=== PATIENT | female | born 1940 | race Caucasian/White ===

== ENCOUNTER 2017-11-27 10:32 | Outpatient (CLI) | payer MEDICARE, SELFPAY ==
[2017-11-27 11:20] VITALS: BP 102/49; PULSE 72; RESP 18; TEMP 36.6; O2SAT 99
[2017-11-27 11:50] VITALS: BP 105/50; PULSE 78; RESP 18; O2SAT 98
[2017-11-27 12:20] VITALS: BP 104/48; PULSE 77; RESP 18; O2SAT 99
[2017-11-27 12:50] VITALS: BP 101/52; PULSE 74; RESP 18; O2SAT 98
[2017-11-27 13:20] VITALS: BP 103/57; PULSE 79; RESP 18; O2SAT 99
[2017-11-27 13:35] VITALS: BP 110/54; PULSE 76; RESP 18; O2SAT 98
== END 2017-11-27 13:30 | disposition home or self-care (01) ==
PROVIDERS: PCP Nurse Practitioner Family; Visit Provider Nurse Practitioner Family
DX: E86.0 Dehydration (principal)
CPT/HCPCS: 96360; 96361

== ENCOUNTER → 2017-12-11 13:00 | Outpatient (REF) | payer MEDICARE, SELFPAY ==
[2017-12-14 11:59] LABS: C difficile Toxins AB, EIA Positive (Negative)
== END ==
LOC: LAB 13:00
PROVIDERS: Visit Provider Nurse Practitioner Family
DX: R19.7 Diarrhea, unspecified (principal)
CPT/HCPCS: 87045; 87205; 87324

== ENCOUNTER → 2018-01-01 10:26 | Outpatient (CLI) | payer MEDICARE, SELFPAY ==
[2018-01-01 10:54] LABS: Occult Blood,Stool Negative (Negative)
== END ==
PROVIDERS: Family Provider Nurse Practitioner; PCP Nurse Practitioner Family; Visit Provider Surgery
DX: R19.7 Diarrhea, unspecified (principal)
CPT/HCPCS: 82272; G0328

== ENCOUNTER → 2018-01-07 08:00 | Outpatient (CLI) | payer MEDICARE, SELFPAY ==
[2018-01-08 16:06] LABS: C difficile Toxins AB, EIA Negative (Negative)
== END ==
PROVIDERS: Family Provider Nurse Practitioner; PCP Nurse Practitioner Family; Visit Provider Surgery
DX: R10.9 Unspecified abdominal pain (principal)
CPT/HCPCS: 87324

== ENCOUNTER → 2018-06-12 10:01 | Outpatient (CLI) | payer MEDICARE, SELFPAY ==
--- NOTE | 2018-06-12 10:03 | CA_ITS ---
PROCEDURE: 2-D M-mode and color Doppler study INDICATIONS FOR THE TEST: Chest pain COPD Heart Murmur Tobacco Smoking Palpitations Fatigue Syncope Edema+ Hypertension+Diabetes Mellitus Rheumatic Fever SOB+JOSÉ Obesity+Hyperlipidemia+ Family History HD+ Additional History TRISTAN, dizziness, RBBB, first degree AV block PATIENT INFORMATION HEIGHT: 69 WEIGHT: 245 GENDER: Female B/P: 183/66 2-D/M-MODE INTERPRETATION: 2-D MEASUREMENTS OBSERVED VALUES IN CMS Right Ventricular Dimension (RVDd) 3.0 Interventricular Septum (Thickness)(IVsd) 0.8 Left Ventricular Internal Dimensions(LVIDd) 4.9 Left Ventricular Posterior Wall (Thickness)(LVPWd) 0.9 Aortic Root 3.2 Aortic Cusp Separation 2.3 Left Atrial Dimensions (LAD) 3.6 2D 1. Left atrium is mildly enlarged, left ventricle is normal size, there is mild qualitative concentric left ventricular hypertrophy, visually estimated ejection fraction 55% with no regional wall motion abnormality. 2. The right atrium and right ventricle are mildly enlarged with normal contractility. 3. The aortic valve is minimally thickened and calcified leaflet continue to display mobility. 4. The mitral and tricuspid valve leaflets are minimally thickened and calcified. 5.The pulmonic valve is poorly visualized. 6. No significant pericardial effusion noted. DOPPLER INTERROGATION: Doppler interrogation of the aortic, mitral and tricuspid valvular presence of mild mitral and tricuspid regurgitation, tricuspid regurgitation jet velocity is inadequate for calculation of the right ventricular systolic pressure, grade 1 diastolic dysfunction seen with tissue Doppler evidence of raised left atrial pressure. CONCLUSION: 1. Mildly enlarged left atrium, normal left ventricular size, mild qualitative concentric left ventricular hypertrophy, visually estimated ejection fraction 55% with no regional wall motion abnormality, grade 1 diastolic dysfunction seen with tissue Doppler evidence of raised left atrial pressure. 2. Mildly enlarged right ventricle with normal contractility. 3. Mild mitral and tricuspid regurgitation 4. No significant pericardial effusion noted.
--- NOTE | 2018-06-12 10:03 | CI_ITS ---
Cerebrovascular Exam Indications: Follow-up carotid 433.10. 780.4 Dizziness and giddiness. Stent right carotid 2011. IMPRESSIONS 1. The bilateral veterbral arteries were non-visualized. 2. Study suggests less than 20% stenosis involving the right internal carotid artery. No change from the study of 14-Jun-2015. 3. Study suggests less than 20% stenosis involving the left internal carotid artery. No change from the study of 14-Jun-2015. History: Risk factors: Hypertension. Carotid duplex study. Complete study and Doppler flow study including spectral analysis, color and simmons scale imaging. Location: Vascular laboratory. Patient status: Outpatient. Tables: Arterial flow: + +--------+--------+ Location V sys V ed + +--------+--------+ Right CCA - proximal 121cm/s 20.4cm/s + +--------+--------+ Right CCA - mid 95.9cm/s 22cm/s + +--------+--------+ Right CCA - distal 119cm/s 35.4cm/s + +--------+--------+ Right ECA 178cm/s 30.3cm/s + +--------+--------+ Right ICA - proximal 122cm/s 36.9cm/s + +--------+--------+ Right ICA - mid 112cm/s 25.9cm/s + +--------+--------+ Right ICA - distal 125cm/s 33cm/s + +--------+--------+ Left CCA - proximal 101cm/s 18.9cm/s + +--------+--------+ Left CCA - distal 98.2cm/s 15.7cm/s + +--------+--------+ Left ECA 99.8cm/s 10.2cm/s + +--------+--------+ Left ICA - proximal 71.5cm/s 21.2cm/s + +--------+--------+ Left ICA - mid 99cm/s 31.4cm/s + +--------+--------+ Left ICA - distal 94.3cm/s 30.6cm/s + +--------+--------+ Velocity ratios: + + + + + + Right, V sys Right, V ed Left, V sys Left, V ed + + + + + + Max ICA/dist CCA 1.05 1.04 1.01 2 + + + + + + (Report amended ) Electronically signed by: Maynor Pavon [id number]
== END ==
PROVIDERS: PCP Nurse Practitioner Family; Visit Provider Urology
DX: R42 Dizziness and giddiness (principal); R06.02 Shortness of breath
CPT/HCPCS: 93306; 93880

== ENCOUNTER → 2018-06-28 13:44 | Outpatient (CLI) | payer MEDICARE, SELFPAY ==
[2018-06-28 16:50] LABS: Anion Gap 19.4 mEq/L (5-15); Blood Urea Nitrogen 13 mg/dL (7-18); Calcium 9.4 mg/dL (8.5-10.1); Carbon Dioxide 22 mmol/L (21.0-32.0); Chloride 101 mmol/L (98-107); Creatinine,Serum 0.98 mg/dL (0.55-1.02); Estimated Glomerular Filt Rate 55 ml/min (>60); GFR (African American) 67 ML/MIN (>60); Glucose 105 mg/dL (74-106); Potassium 4.4 mmoL/L (3.5-5.1); Sodium 138 mmol/L (136-145)
== END ==
PROVIDERS: Visit Provider Physician Assistant
DX: I11.9 Hypertensive heart disease without heart failure (principal); R42 Dizziness and giddiness
CPT/HCPCS: 36415; 80048

== ENCOUNTER → 2018-10-07 08:18 | Outpatient (CLI) | payer MEDICARE, SELFPAY ==
[2018-10-07 09:12] LABS: Alanine Aminotransferase 26 U/L (12-78); Albumin Level 3.6 gm/dL (3.4-5.0); Alkaline Phosphatase 141 U/L (46-116); Aspartate Amino Transferase 13 U/L (15-37); Bilirubin,Direct 0.1 mg/dL (0.0-0.2); Bilirubin,Indirect 0.6 mg/dL (0.0-0.9); Bilirubin,Total 0.7 mg/dL (0.2-1.0); Chol/HDL Ratio 3.4 (1-3.5); Cholesterol 114 mg/dL (140-200); HDL Cholesterol 34 mg/dL (29-89); LDL Cholesterol 43 mg/dL (0-130); Total Protein,Serum 7.4 gm/dL (6.4-8.2); Triglycerides 185 mg/dL (30-200); VLDL Cholesterol 37 mg/dL (0-40)
== END ==
PROVIDERS: Visit Provider Urology
DX: E78.5 Hyperlipidemia, unspecified (principal); I25.10 Atherosclerotic heart disease of native coronary artery without angina pectoris; I44.0 Atrioventricular block, first degree; I45.10 Unspecified right bundle-branch block; R06.02 Shortness of breath; R42 Dizziness and giddiness; Z98.890 Other specified postprocedural states
CPT/HCPCS: 36415; 80061; 80076

== ENCOUNTER → 2020-07-19 07:32 | Outpatient (CLI) | payer MEDICARE, SELFPAY ==
--- NOTE | 2020-07-19 | CA_ITS ---
APPROVED REPORT Exam: Pharmacologic Technologist: Shonda Serna, Ht: 5 ft 9 in Wt: 241 lbs BSA: 2.24 m2 HR: 62 bpm BP: 145/72 mmHg Indications: Atypical Angina, CAD, TRISTAN Medical History Medications: Levothyroxine,,,,, Aspirin,,,,, Allopurinol,,,,, Atorvastatin,,,,, Carvedilol,,,,, Losartan/HCTZ,,,,, MiraLAX,,,,, Stress Test Details Test: LEXISCAN HR Resting HR: 63 bpm Max Heart Rate (APMHR): 143 bpm Max HR Achieved: 76 bpm Target HR (85% APMHR): 121 bpm % of APMHR: 53 Recovery HR: 68 bpm BP Resting BP: 145/72 mmHg Max BP: 146/73 mmHg Recovery BP: 146.0/73.0 mmHg ECG Clinical Exercise duration: 04:00 min Highest Stage Achieved: Stress ECG Conclusion Symptoms: SOA with Lexiscan infusion, No CP Arrhythmias/Ectopy: None ST-T Changes: <1.[address] segment changes Conclusion:non diagnostic EKG Electronically signed by : Mendoza Ugalde, 07/19/2020 19:12:16
--- NOTE | 2020-07-19 07:40 | NM_ITS ---
APPROVED REPORT Exam: Nuclear Stress Test Indication: Chest pain, SOB, CAD, HTN, High cholesterol, Family history Patient Location: Outpatient Stress Tech: Shonda Serna NM Tech:Nina Thomas, ARRT, RT (R)(N) Ht: 5 ft 9 in Wt: 240 lbs Bra Size: 44D HR: 62 bpm BP: 145/72 mmHg BSA: 2.23 m2 BMI: 35.4 History: Chest pain, SOB, CAD, HTN, High cholesterol, Family history Procedure: Patient received a 0.4 mg of intravenous Lexiscan, resting heart rate 62 bpm, resting blood pressure 145/72 mmHg, with Lexiscan maximum heart rate achived was 70 bpm which is Less than 85 % of the maximum predicted heart rate and blood pressure was 129/72 mmHg. With Lexiscan, patient denied any complaint of chest pain. Electrocardiogram Resting electrocardiogram showed sinus rhythm, with Lexiscan there is less than 1.[address] segment depression noted from the baseline EKG. The EKG portion of the Lexiscan is nondiagnostic. Cardiac Stress and Resting SPECT Images: Cardiac Stress and Resting SPECT images were obtained using technetium 99m Myoview 30.8 mCi stress and 10.17 mCi at rest. Gated SPECT for analysis of segmental wall motion and calculation of the ejection fraction also done. Cardiac stress and resting SPECT images show uniform myocardial activity without segmental perfusion abnormality, computer derived ejection fraction 64% with no regional wall motion abnormality, right ventricle is normal size and contractility. Conclusion: 1. The EKG portion of the Lexiscan is nondiagnostic. 2. No scintigraphic evidence of reversible ischemia seen, computer derived ejection fraction is 64% with no regional wall motion abnormality, right ventricle is normal size and contractility. 3. Normal Lexiscan Myoview study. Electronically signed by : Mendoza Ugalde, 07/19/2020 19:24:25
--- NOTE | 2020-07-19 08:55 | CA_ITS ---
APPROVED REPORT Transportation Security Screener: DIONNE Laterality: Bilateral Indications: TRISTAN, history of CVA Risk Factors Hypertension: Hyperlipidemia Doppler Spectral Velocity Analysis ECA (R) 102.70/5.30 cm/s ECA (L) 73.70/11.10 cm/s dICA (R) 148.60/33.10 cm/s dICA (L) 80.50/24.00 cm/s Laura (R) 150.80/36.40 cm/s Laura (L) 86.50/24.00 cm/s pICA (R) 141.10/39.60 cm/s pICA (L) 69.40/21.40 cm/s dCCA (R) 110.10/24.60 cm/s dCCA (L) 94.10/12.80 cm/s pCCA (R) 113.30/23.50 cm/s pCCA (L) 103.70/17.10 cm/s ICA/CCA 1.37 Vert (L) 31.70/14.60 cm/s ICA/CCA 0.92 Findings Duplex evaluation demonstrates stenosis of the right proximal internal carotid artery in the range of 20-49% with PSV <140 cm/sec, EDV <100 cm/sec, and IC/CC Ratio <4.0. Duplex evaluation demonstrates stenosis of the left proximal internal carotid artery <20% with PSV <140 cm/sec, EDV <100 cm/sec, and IC/CC Ratio <4.0. Conclusion Duplex evaluation demonstrates stenosis of the right proximal internal carotid artery in the range of 20-49% with PSV <140 cm/sec, EDV <100 cm/sec, and IC/CC Ratio <4.0. Duplex evaluation demonstrates stenosis of the left proximal internal carotid artery <20% with PSV <140 cm/sec, EDV <100 cm/sec, and IC/CC Ratio <4.0. Electronically signed by : Maynor Pavon MD 07/19/2020 17:20:32
--- NOTE | 2020-07-19 08:55 | CA_ITS ---
APPROVED REPORT EXAM: Comprehensive 2D, Doppler, and color-flow Echocardiogram Licensed Clinician: Amber Kirk RT(R) Ht: 5 ft 9 in Wt: 241lbs BSA: 2.24 BP: 121/72 mmHg Indications: COPD, HTN, hyperlipidemia, CAD, RBBB, angina 2D Dimensions LVOT 1.98 cm (M/F) 1.5-2.5 M-Mode Dimensions RVDd 2.68 cm (0.9-2.6) LA Diam 3.32 cm (1.9-4.0) LVDd 4.33 cm (3.5-5.7) Ao Diam 2.47 cm (2.0-3.7) LVDs 3.30 cm (3.5-5.7) IVSd 0.98 cm (0.6-1.1) PWd 0.89 cm (0.6-1.1) EF (Teich) 47.70% FS 23.80% EDV (Teich) 84.40 mL ESV (Teich) 44.10 mL LV Diastology E Decel Time 157.00 (160-240 msec) E/A Ratio 1.1 MED E' 6.20 (< 7 cm/sec) E'/MED E' Ratio 13.50 (>14) LAT E' 10.00 (<10 cm/sec) E/LAT E' Ratio 8.37 (>14) Mitral Valve MV E Max Ciaran. 84.00 (40-130 cm/s) MV A Velocity 78.00 (40-130 cm/s) E/A Ratio 1.08 MV Decel. Time 157.00 (160-240 ms) MV PHT 46.00 ms Left Ventricle Left atrium is mildly enlarged, left ventricle is normal size, mild concentric left ventricular hypertrophy, visually estimated ejection fraction 55% with no regional wall motion abnormality, grade 2 diastolic dysfunction seen without tissue Doppler evidence of raise left atrial pressure. Right Ventricle Right atrium and right ventricle are mildly enlarged with normal contractility. Aortic Valve Aortic valve is thickened and calcified without Doppler evidence of aortic stenosis or aortic insufficiency. Mitral Valve Mitral valve leaflets are minimally thickened, there is mild mitral regurgitation. Tricuspid Valve Tricuspid valve grossly normal, there is mild tricuspid regurgitation, tricuspid regurgitation jet velocity is inadequate for calculation of the right ventricular systolic pressure. Pulmonic Valve Pulmonic valve is poorly visualized. Great Vessels Aortic root is normal size. Pericardium No significant pericardial effusion noted. Conclusion 1. Mild biatrial enlargement, normal left ventricular size, mild concentric left ventricular hypertrophy, visually estimated ejection fraction 55% with no regional wall motion abnormality, grade 2 diastolic dysfunction seen without tissue Doppler evidence of raise left atrial pressure. 2. Mildly enlarged right ventricle with normal contractility. 3. Mild mitral and tricuspid regurgitation. 4. No significant pericardial effusion noted. Electronically signed by : Mendoza Ugalde, 07/19/2020 18:39:17
--- NOTE | 2020-07-19 09:18 | HMH.ITSHM ---
Current Home Medications as stated by this patient Madelyn Palacios or signs sales representative. []LOSARTAN LEVOTHYROXINE CARVEDILOL ATORVASTATIN ALLOPURINOL ASA
== END ==
PROVIDERS: PCP Nurse Practitioner Family; Visit Provider Physician Assistant
DX: R06.02 Shortness of breath (principal); I11.9 Hypertensive heart disease without heart failure; I45.2 Bifascicular block; R09.89 Other specified symptoms and signs involving the circulatory and respiratory systems; Z86.73 Personal history of transient ischemic attack (TIA), and cerebral infarction without residual deficits
CPT/HCPCS: 78452; 93017; 93306; 93880; A9502; J2785

== ENCOUNTER → 2020-07-21 09:23 | Outpatient (CLI) | payer MEDICARE, SELFPAY ==
[2020-07-21 09:51] LABS: Basophils # 0.1 K/mm3 (0-0.2); Basophils % 0.8 % (0.1-2.0); Eosinophils # 0.5 K/mm3 (0.0-0.4); Eosinophils % 7.8 % (0.1-12.0); Hematocrit 38.5 % (37.0-47.0); Hemoglobin 11.9 g/dL (12.2-16.2); Lymphocytes % 44.5 % (10-50); Mean Corpuscular HGB Conc 30.8 g/dL (31.8-35.4); Mean Corpuscular Hemoglobin 33.1 pg (27.0-31.2); Mean Corpuscular Volume 107.2 fl (81-99); Mean Platelet Volume 8.7 fl (7.4-10.4); Monocytes # 0.4 K/mm3 (0.1-1.0); Monocytes % 6.2 % (1.7-9.3); Neutrophils # 2.7 K/mm3 (1.8-7.8); Neutrophils % 40.7 % (37.0-80.0); Platelet Count 183 K/mm3 (142-424); Red Blood Count 3.59 M/mm3 (4.20-5.40); Red Cell Distribution Width 16.6 % (11.5-17.5); White Blood Count 6.7 K/mm3 (4.8-10.8)
[2020-07-21 10:13] LABS: Chloride 104 mmol/L (98-107); Potassium 4.1 mmoL/L (3.5-5.1); Sodium 140 mmol/L (136-145)
[2020-07-21 10:16] LABS: Alanine Aminotransferase 30 U/L (12-78); Albumin Level 4.5 g/dl (3.5-5.0); Alkaline Phosphatase 136 U/L (38-126); Anion Gap 14.1 mEq/L (5-15); Aspartate Amino Transferase 28 U/L (14-36); Bilirubin,Direct 0.1 mg/dl (0.0-0.4); Bilirubin,Indirect 0.7 mg/dL (0.0-0.9); Bilirubin,Total 0.8 mg/dl (0.2-1.3); Bilirubin,Unconjugated 0.7 mg/dL (0.0-1.1); Blood Urea Nitrogen 13 mg/dl (7-17); Calcium 10.3 mg/dl (8.4-10.2); Carbon Dioxide 26 mmol/L (22.0-30.0); Cholesterol 142 mg/dl (140-200); Estimated Glomerular Filt Rate 61 ml/min (>60); GFR (African American) 73 ML/MIN (>60); Glucose 138 mg/dl (74-100); Total Protein,Serum 8.8 g/dl (6.3-8.2); Triglycerides 279 mg/dl (30-150); VLDL Cholesterol 56 mg/dL (0-40)
[2020-07-21 10:17] LABS: Chol/HDL Ratio 4.2 (1-3.5); HDL Cholesterol 34 mg/dl (40-60)
[2020-07-21 10:23] LABS: NT Pro Brain Natriuretic Pep. 332 pg/mL (0-450)
[2020-07-21 10:29] LABS: Direct LDL Cholesterol 32.68 mg/dL (100-129)
[2020-07-21 10:33] LABS: Triiodothryronine (T3) Uptake 33 % (23.5-40.5)
[2020-07-21 10:34] LABS: T4 (Thyroxine) 9.2 ug/dl (5.53-11.0)
[2020-07-21 10:48] LABS: Thyroid Stimulating Hormone 2.48 uIU/mL (0.465-4.68)
== END ==
PROVIDERS: Visit Provider Physician Assistant
DX: R53.83 Other fatigue (principal); E03.9 Hypothyroidism, unspecified; E78.5 Hyperlipidemia, unspecified; I11.9 Hypertensive heart disease without heart failure; R06.02 Shortness of breath; Z79.899 Other long term (current) drug therapy
CPT/HCPCS: 36415; 80048; 80061; 80076; 83880; 84436; 84443; 84479; 85025

== ENCOUNTER → 2020-08-12 10:52 | Outpatient (CLI) | payer MEDICARE, SELFPAY ==
--- NOTE | 2020-08-12 11:03 | XR_ITS ---
PROCEDURE: XR CERVICAL SPINE 5V CLINICAL INDICATION: CERVICALGIA COMPARISON: No exams were available for comparison FINDINGS: There is diffuse osteopenia. Carotid artery stent is present on the right. There is normal alignment. There is slight reversal of the cervical lordosis which could be due to patient positioning or muscle spasm. There is degenerative disc disease at C5-C6 and C6-C7. Facet arthritic changes are present at C5-C4 and C3. Foraminal narrowing is present on the left at C3-C4 and C6-C7. Prominent endplate hypertrophic changes are present at C6-C7. IMPRESSION: Degenerative disc disease C5-C6 and C6-C7 with endplate hypertrophic change at C6-C7 along with facet arthritic changes and left foraminal narrowing at C3-C4 and C6-C7. There is diffuse osteopenia. Dictated by: Maynor Pavon MD 08/12/2020 18:06 Maynor Pavon MD in [place] 08/12/2020 18:06
== END ==
PROVIDERS: PCP Nurse Practitioner Family; Visit Provider Nurse Practitioner Family
DX: M54.2 Cervicalgia (principal)
CPT/HCPCS: 72050

== ENCOUNTER → 2020-09-01 08:06 | Outpatient (CLI) | payer MEDICARE, SELFPAY ==
--- NOTE | 2020-09-01 08:08 | XR_ITS ---
PROCEDURE: XR DEXA AXIAL SKELETON CLINICAL HISTORY: OSTEOPENIA,POST MENOPAUSAL COMPARISON: No exams were available for comparison FINDINGS: The right hip BMD is 0.872 with a T-score of 0.2. The left hip BMD is 0.835 with a T-score of -0.1. The lumbar spine BMD is 1.399 with a T-score of 3.2. IMPRESSION: This patient is considered normal according to the World Health Organization criteria. Fracture risk is low. Based on these results a follow-up exam is recommended in 2 year. Dictated by: Maynor Pavon MD 09/01/2020 20:59 Maynor Pavon MD in [place] 09/02/2020 11:06
== END ==
PROVIDERS: PCP Nurse Practitioner Family; Visit Provider Nurse Practitioner Family
DX: M85.89 Other specified disorders of bone density and structure, multiple sites (principal); Z78.0 Asymptomatic menopausal state
CPT/HCPCS: 77080

== ENCOUNTER → 2020-10-20 10:38 | Outpatient (CLI) | payer MEDICARE, SELFPAY | PROVIDERS: PCP Nurse Practitioner Family; Visit Provider Nurse Practitioner Family | DX: R42 Dizziness and giddiness (principal) | CPT/HCPCS: 93225; 93226 ==

== ENCOUNTER → 2020-11-30 10:40 | Outpatient (CLI) | payer MEDICARE, SELFPAY | PROVIDERS: Visit Provider Physician Assistant | DX: Z01.812 Encounter for preprocedural laboratory examination (principal); Z11.52 Encounter for screening for COVID-19; R55 Syncope and collapse; R00.0 Tachycardia, unspecified | CPT/HCPCS: U0003 ==

== ENCOUNTER 2020-12-01 09:44 | Day surgery (SDC) | payer MEDICARE, SELFPAY ==
[2020-12-01] VITALS (9 sets, daily range): BP systolic 129–151; BP diastolic 69–87; PULSE 76–97; RESP 13–18; O2SAT 92–98; BMI 36.4
--- NOTE | 2020-12-01 | IR_ITS ---
APPROVED REPORT Patient Location: Outpatient Supervisor Phosphorus Processing: PEACE Suarez RT (R) PROCEDURES 1. Pocket formation for Permanent Pacemaker Placement on the left anterior aspect of the chest 2. Left subclavian venogram 3. Pocket formation for permanent pacemaker on the left anterior aspect of the chest 4. Placement of an atrial sensing and pacing coil into the right atrial appendage. 5. Placement of a ventricular sensing and pacing coil in the right ventricular apex. 6. Permanent Pacemaker Placement. INDICATION Sick Sinus Syndrome, Andres/Tachy Syndrome, Occluded left subclavian vein Informed consent was obtained prior to the procedure. COMPLICATIONS None Estimated Blood Loss: Less than 10 mls TECHNIQUE 1% Lidocaine with epinephrine used to anesthetized the left anterior aspect of the chest. Scalpel was used to make the initial cutaneous incision while electrocautery was used to dissect down tinto the fascia. The fascia was lifted off the pectoralis muscle and digitally manipulated creating a pocket for the pacemaker. Despite several attempts the wire would not pass through the subclavian vein. Because of this contrast was injected into the left antecubital access and left subclavian venography was performed which demonstrated an occluded left subclavian vein. At this point the pocket was flushed with antibiotics Monocryl was used to close the pocket and chris were used to close the cutaneous layer. At this point the procedure was repeated on the right side as described above. The right subclavian vein was accessed via the Salinger technique and 2 leads were placed in the right subclavian vein. Using fluoroscopic guidance, the ventricular lead was placed into the right ventricular apex, screwed and secured into place. Electronic interrogation proved acceptable thresholds and voltage within the lead. Using 3-0 silk, the ventricular lead was then secured into place. Lead was secured to the facia using the 3-0 silk. Following this, the sheath was pealed away. An additional 6 Macanese fresh sheath and dilator was placed over the existing wire. Using fluoroscopic guidance, the atrial lead was the placed into the right atrial appendage and screwed and secured in place. Electrical interrogation demonstrated acceptable thresholds and voltage number. The atrial lead was then secured into place using 3-0 silk. 1 gram of Ancef was used to flush the pocket. Following the pacemaker generator being secured to the fascia and in place, Monocryl was used to close the subcutaneous layers while chris were used to close the cutaneous layer. A pressure dressing was placed and the patient was transferred to the postop holding area in stable condition for postoperative care. INTERROGATION Generator Model number: ROSA CASTELLANOS DR, L311 Generator Serial number: [id number] Atrial lead model number: INGEVITY+ 45CM, 7840 Atrial lead serial number: [id number] P-wave: 4.0mV Impedence: 458 ohms Threshold: 1.0V@0.4ms Right Ventricular lead model number: INGEVITY+ 52CM, 7841 Right Ventricular lead serial number: [id number] R-wave: 12.0mV Impedence: 856 ohms Threshold: 1.0V@0.4ms Pacing Parameters: Mode: DDDR RYTHMIQ: AAIR with VVI Back up Base/Max Track: 60/130 ppm No diaphragmatic stimulation at 10 volts. IMPRESSION 1. Successful Pocket formation for Permanent Pacemaker Placement on the left anterior aspect of the chest 2. Successful Left subclavian venogram 3. Successful Pocket formation for permanent pacemaker on the left anterior aspect of the chest 4. Successful Placement of an atrial sensing and pacing coil into the right atrial appendage. 5. Successful Placement of a
--- NOTE | 2020-12-01 09:50 | XR_ITS ---
PROCEDURE: XR CHEST PORTABLE CLINICAL HISTORY: Confirm pacemaker/AID placement COMPARISON: CR CXR CHEST(2 VIEWS-NOT PORTABLE) from 02/16/2014 FINDINGS: Right subclavian bipolar pacemaker is present. Lead tips project over the right atrium and right ventricle. No evidence of pneumothorax. Skin clips are present in the right and left infraclavicular region. Lungs are clear bilaterally. Mild degenerative changes in the shoulders. IMPRESSION: S/p bipolar pacemaker placement with good lead position and no evidence of pneumothorax. Dictated by: Maynor Pavon MD 12/01/2020 14:31 Maynor Pavon MD in [place] 12/01/2020 14:31
[2020-12-01 10:33] LABS: Basophils # 0.1 K/mm3 (0-0.2); Basophils % 0.5 % (0.1-2.0); Eosinophils # 0.4 K/mm3 (0.0-0.4); Eosinophils % 4.3 % (0.1-12.0); Hemoglobin 11.6 g/dL (12.2-16.2); Lymphocytes # 2.9 K/mm3 (0.7-4.5); Lymphocytes % 30.9 % (10-50); Mean Corpuscular HGB Conc 34.1 g/dL (31.8-35.4); Mean Corpuscular Hemoglobin 34.2 pg (27.0-31.2); Mean Corpuscular Volume 100.3 fl (81-99); Mean Platelet Volume 9.4 fl (7.4-10.4); Monocytes # 0.6 K/mm3 (0.1-1.0); Monocytes % 5.9 % (1.7-9.3); Neutrophils # 5.5 K/mm3 (1.8-7.8); Neutrophils % 58.3 % (37.0-80.0); Platelet Count 193 K/mm3 (142-424); Red Blood Count 3.38 M/mm3 (4.20-5.40); Red Cell Distribution Width 16.5 % (11.5-17.5); White Blood Count 9.5 K/mm3 (4.8-10.8)
[2020-12-01 10:46] LABS: Chloride 104 mmol/L (98-107); Potassium 4.7 mmoL/L (3.5-5.1); Sodium 140 mmol/L (136-145)
[2020-12-01 10:49] LABS: Anion Gap 15.7 mEq/L (5-15); Blood Urea Nitrogen 19 mg/dl (7-17); Carbon Dioxide 25 mmol/L (22.0-30.0); Creatinine Clearance Estimated 68 mL/min (50-200); Estimated Glomerular Filt Rate 43 ml/min (>60); GFR (African American) 53 ML/MIN (>60)
[2020-12-01 10:50] LABS: Calcium 9.8 mg/dl (8.4-10.2); Glucose 149 mg/dl (74-100)
--- NOTE | 2020-12-01 12:36 | SUR.OPER ---
unable to access the left chest wall, room exchange architect to access right chest wall
== END 2020-12-01 15:17 | disposition home or self-care (01) ==
LOC: CATHLAB 09:47
PROVIDERS: PCP Nurse Practitioner Family; Visit Provider Internal Medicine
DX: I49.5 Sick sinus syndrome (principal); I44.4 Left anterior fascicular block; I11.9 Hypertensive heart disease without heart failure; I25.10 Atherosclerotic heart disease of native coronary artery without angina pectoris; I45.10 Unspecified right bundle-branch block; I44.0 Atrioventricular block, first degree; I65.21 Occlusion and stenosis of right carotid artery; R42 Dizziness and giddiness; Z79.899 Other long term (current) drug therapy
CPT/HCPCS: 33208; 71045; 80048; 85025; C1785; C1898; J2704; Q9967

== ENCOUNTER 2021-02-02 13:41 | Emergency (ER) | payer MEDICARE, SELFPAY ==
--- NOTE | 2021-02-02 14:17 | XR_ITS ---
PROCEDURE: XR LUMBAR SPINE 2-3V CLINICAL INDICATION: pain COMPARISON: CR LS5 LUMBAR SPINE 5 VIEWS from 02/09/2017 FINDINGS: No fracture or dislocation. No lytic or blastic change. There is normal mineralization. Mild lumbar scoliosis convex right. Multilevel lumbar spondylosis. Degenerative disc disease is present from L1-S1. Facet arthritic changes are present with facet hypertrophy from L2-S1. The degenerative disc disease has progressed and is most severe at L3-L4 with endplate osteophytes at that level. Endplate osteophytes are also present at L4-5 and L2-L3 and L1 and L2. There is mild wedging anteriorly at L3 which has developed since the previous exam age indeterminate. Other findings:None. IMPRESSION: Multilevel lumbar spondylosis which is progressed since the previous exam. There is minimal wedging of L3 which was not present previously and is age indeterminate Dictated by: Maynor Pavon MD 02/02/2021 15:05 Maynor Pavon MD in [place] 02/02/2021 15:05
[2021-02-02 14:45] VITALS: BP 149/81; PULSE 79; RESP 18; TEMP 37; O2SAT 98; BMI 34.8
--- NOTE | 2021-02-02 15:02 | HMH.EDUTC ---
[facility] [place] Disposition Clinical Impression: Low back pain with sciatica Qualifiers: Chronicity: unspecified Back pain laterality: left Sciatica laterality: sciatica of left side Qualified Code(s): M54.42 - Lumbago with sciatica, left side Disposition: Home, Self-Care Condition on Discharge: Good Instructions: DI for Low Back Pain, DI for Sciatica, DI for Back Pain With Sciatica, Methocarbamol Additional Instructions: *Ibuprofen cassidy 6 hours with meal as needed for pain/inflammation if your Doctor has said you can take it *Remember you had a Toradol shot in the clinic today, which is similar to Motrin do not take any for at least the next 8-10 hours *Not additional anti-inflammatory like motrin, aleve, advil with the above amount of ibuprofen. You can still take Tylenol every 4 hours as needed if you need something else for pain *Ice 20 minutes every 2 hours for the first 48 hours after the initial injury followed by moist heat every 20 minutes 3-4 times a day to affected area *Muscle relaxer as prescribed as needed for muscle spasms but remember, it WILL cause drowsiness You cannot take it and drive, operate machinery or care for small children. *Keep this area active, no movement leads to more stiffness, However take it easy and avoid heavy lifting pushing or pulling *Follow up with you family doctor if no improvement for further treatment in the next 48-72 hours Return if needed Straight to ER if any life threatening symptoms Prescriptions: methocarbamoL [Methocarbamol 500mg Tablet] 500 mg PO BID PRN #10 tab PRN Reason: Muscle Spasm Transmission Status: Received by [facility] #[id number] Referrals: Kosta Solis MD [Primary Care Provider] - As needed (Follow up in the next 24-48 hours if no improvement and immediately if any worsening of symptoms) Medical Decision Making - Medardo Inquiry Pt receiving controlled substance: No Medardo was queried for this patient: No Vital Signs: 02/02/21 14:45 02/02/21 15:47 Temperature 98.6 F 98.6 F Temperature Source Oral Pulse Rate 79 Pulse Rate [Right] 79 Respiratory Rate 18 18 Blood Pressure 149/81 H Blood Pressure [Right Arm] 149/81 H Blood Pressure Mean [Right Arm] 103 02 Sat by Pulse Oximetry 98 Oxygen Delivery Method Room Air Orders (Tests/Meds): ED MEDICATIONS Discontinued Medications Generic Name Dose Route Start Last Admin Trade Name Lorena PRN Reason Stop Dose Admin Ketorolac Tromethamine 30 mg 02/02/21 15:13 02/02/21 15:28 Ketorolac 60mg/2ml Vial IM 02/02/21 15:14 30 mg ONCE ONE Administration Methylprednisolone Sodium Succinate 125 mg 02/02/21 15:13 02/02/21 15:27 Methylprednisolone Sod Succ 125mg Vial IM 02/02/21 15:14 125 mg ONCE ONE Administration - Radiology Data #1 Image(s): L-Spine Image Reviewed: Yes I have reviewed radiologist's interpretation Multilevel lumbar spondylosis which is progressed since the previous exam. There is minimal wedging of L3 which was not present previously and is age indeterminate Medical Decision Narrative: Medication discussed with Pharmacy Patient state that pain was much better after medication [facility] [place] HPI - General Stated complaint: leg and back pain, no accident Time Seen by Provider: 02/02/21 15:02 Description of Symptoms (Recalled from Triage Doc. by RN): LOWER BACK PAIN, LEFT LEG PAIN X2 WEEKS HEENT Symptoms (Recalled from RN notes): No Resp Symptoms (Recalled from RN notes): No Skin Symptoms (Recalled from RN notes): No MS Symptoms (Recalled from RN notes): Yes Functional Status (Recalled from RN notes): WNL - History of Present Illness Provider Complaint: Patient states that she mowed the grass a couple weeks ago and a couple days after she started having achy like pain on the left side of her lower back area State that since then it has continued to hurt and now moved into her buttock area and into her upper leg State that pain is worse when she sits on that aleida
[2021-02-02 15:47] VITALS: BP 149/81; PULSE 79; RESP 18; TEMP 37; O2SAT 98
== END 2021-02-02 15:50 | disposition home or self-care (01) ==
PROVIDERS: Emergency Provider Nurse Practitioner; PCP Family Medicine
DX: M54.42 Lumbago with sciatica, left side (principal); J44.9 Chronic obstructive pulmonary disease, unspecified; I25.10 Atherosclerotic heart disease of native coronary artery without angina pectoris; I10 Essential (primary) hypertension; E78.5 Hyperlipidemia, unspecified; Z79.899 Other long term (current) drug therapy
CPT/HCPCS: G0463; 72100; 96372; 99202

== ENCOUNTER 2021-02-16 13:00 | Outpatient (RCR) | payer MEDICARE, SELFPAY ==
--- NOTE | 2021-02-11 13:58 | HMH.PTOPEV ---
PT Outpatient Evaluation Rehab PT Outpatient Evaluation Start: 02/11/21 12:55 Freq: Status: Active Protocol: Document 02/11/21 13:37 CYNTHIA (Rec: 02/11/21 13:54 CYNTHIA [id number]) Electronically Signed By Raphael Landers, PT 02/11/21 13:37 Outpatient Therapy Subjective History Subjective History Patient is a 80 year old female presenting to outpatient PT with reports of acute LBP with radiating pain to L buttock starting approx 1 .5 weeks ago. Patient reports symptom onset day after mowing her yard on a riding lawnmower. Most recent imaging indicates multilevel lumbar spondylosis, scoliosis convex R and L3 wedge fracture . Comorbidities include hx of non-hodgkins lymphoma x 2, HTN, HL, pacemaker and gout. Chief Complaint Pain,Spasms Symptom Type Ache Symptoms Relieved By Rest/Positioning,Ice,OTC Meds, Prescription Meds Symptoms Aggravated By Sitting,Bending/Stooping, Physical Activity,Lifting Prior Functional Limitations None Current Functional Limitations Lifting,Housework,Standing, Walking,Bending/Stooping Symptom Description Constant but Variable Level of pain today (0-10) 6 Pain scale - at its best (0-10) 6 Pain scale - at its worst (0-10) 10 Lumbopelvic Eval Posture Thoracic Spine Posture Standing Position Increased Kyphosis Lumbar Spine Posture Standing Position Decreased Lordosis Assistive device Assistive Devices None / NA Gait Observation General Gait Pattern Observation Antalgic Gait,Decrease Weight Bear (L) Palapation tenderness left buttock tenderness Yes: 3/4 Range of Motion Lumbar Spine Active Flexion Range of 65 Motion (degrees) Lumbar Spine Active Extension Range of 10 Motion (degrees) Left Lumbar Spine Lateral Flexion Active 10 Range of Motion (degrees) Right Lumbar Spine Lateral Flexion 10 Active Range of Motion (degrees) Lumbar Spine ROM Limitations Soft Tissue Tightness,Bony Restriction,Muscle Weakness Manual Muscle Test Left Knee Extension Strength Grade 4 Good Knee Flexion Strength Grade 4 Good Hip Flexion Strength Grade 4- Good- Extensor Hallucis Longus Strength Grade 4 Good Ankle Dorsiflexion Strength Grade 4 Good Gastronemius/Soleus Strength Grade
== END 2021-02-16 13:05 | disposition home or self-care (01) ==
LOC: PT 13:00
PROVIDERS: PCP Family Medicine; Visit Provider Nurse Practitioner Family
DX: M54.5 Low back pain (principal); M54.16 Radiculopathy, lumbar region
CPT/HCPCS: 97010; 97110; 97163

== ENCOUNTER 2021-02-22 10:10 | Emergency (ER) | payer MEDICARE, SELFPAY ==
[2021-02-22 10:10] VITALS: BP 135/64; PULSE 87; RESP 16; TEMP 36.6; O2SAT 98; BMI 34.0
--- NOTE | 2021-02-22 10:27 | CT_ITS ---
PROCEDURE: CT ABDOMEN PELVIS W CON CLINICAL INDICATION: LLQ pain COMPARISON: CR XR LUMBAR SPINE 2-3V from 02/02/2021 TECHNIQUE: IV Contrast: 75ML Isovue 370 Oral Contrast None Axial images obtained with sagittal and coronal reformats. All CT scans at the facility use one or more dose reduction, viz: automated exposure control, ma/kV adjustment per patient size (including targeted exams where dose is matched to indication, i.e. head), or iterative reconstruction technique. FINDINGS: LOWER THORAX: Mild bibasilar atelectatic change with trace bilateral effusions. Artifact is present cardiac pacemaker device. ABDOMEN & PELVIS: The liver has an unremarkable appearance. There are few small gallstones with a mildly distended gallbladder noted at 8.5 by 4.2 cm. No biliary dilatation. The spleen, adrenal glands, and pancreas have an unremarkable appearance. There is some mild bilateral renal cortical scarring. No renal or ureteral calculi. No hydronephrosis. No intestinal obstruction or free air. Prior appendectomy. Prior hysterectomy. No evidence of diverticulitis. There is a spigelian hernia noted on the left. The hernia orifice measures approximately 2 cm. The hernia contains fat. No bowel evident within the hernia. The hernia sac is fairly prominent measuring 14 by 7 by 10 cm. There is mild wedge compression changes of L3 which may progressed slightly since 02/02/2021 lumbar spine exam. No obvious retropulsion. IMPRESSION: 1. Cholelithiasis with mildly distended gallbladder. 2. Moderate-sized left spigelian hernia. The hernia orifice as at the level of the anterior superior iliac spine with a prominent hernia sac containing fat measuring 14 x 10 x 7 cm. No bowel involvement. 3. Slight increased wedge compression changes of L3. Dictated by: Maynor Pavon MD 02/22/2021 13:05 Maynor Pavon MD in [place] 02/22/2021 13:05
--- NOTE | 2021-02-22 10:27 | HMH.EDGENADL ---
ED Disposition Clinical Impression: Spigelian hernia Compression fracture of L3 vertebra Qualifiers: Encounter type: initial encounter Qualified Code(s): S32.030A - Wedge compression fracture of third lumbar vertebra, initial encounter for closed fracture Disposition: Home, Self-Care Condition on Discharge: Fair Additional Instructions: You have been evaluated for low back pain. This is likely due to lumbar compression fracture. Please take Al-Anon Motrin for pain. Robaxin for muscle spasm. [place] for extreme pain. Call a pain specialist, like Dr. Garcia. You also have been found to have an abdominal hernia, called a spigelian hernia. Please call a general surgeon to discuss repair. Return to the emergency department at once if you have changes in bowel habits, abdominal pain, vomiting, as bowels can get stuck in the hernia. Follow-up with your primary care doctor within 24 to 48 hours. Prescriptions: Hydrocod/Acet 5/325 mg [[place] 5/325mg tablet] 1 tab PO Q6HP PRN #12 tab PRN Reason: Severe Pain Transmission Status: Sent to [facility] #[id number] methocarbamoL [Methocarbamol 500mg Tablet] 500 mg PO BID PRN #20 tab PRN Reason: Muscle Spasm Transmission Status: Pending to [facility] #[id number] Referrals: Ladonna Burks APRN [Primary Care Provider] - Micky Roland MD [Staff Physician] - Partha Garcia MD [Staff Physician] - Time of Disposition: 13:26 - Critical Care Critical Care Time: No Attestation: On 02/22/21, the high probability of a clinically significant, sudden or life threatening deterioration of the following system(s) required my full and direct attention, intervention and personal management. The time I documented below is in addition to time spent performing reported procedures but includes the following listed in this critical care notation. Medical Decision Making - Medical Records Medical records reviewed: Yes: I reviewed the patient's medical records. - Medardo Inquiry Pt receiving controlled substance: No Vital Signs: 02/22/21 10:10 02/22/21 10:31 02/22/21 11:01 Temperature 98 F Temperature Source Oral Pulse Rate 78 75 Pulse Rate [Radial] 87 Respiratory Rate 16 Blood Pressure 135/72 135/62 Blood Pressure [Right Arm] 135/64 Blood Pressure Mean [Right Arm] 87 Blood Pressure Source Automatic Cuff Automatic Cuff Blood Pressure Position Sitting Sitting Blood Pressure Position [Right Arm] Sitting 02 Sat by Pulse Oximetry 98 94 L 93 L Oxygen Delivery Method Room Air Room Air Room Air - Lab Data Lab Results 02/22/21 11:20: WBC 5.4, RBC 3.46 L, Hgb 12.2, Hct 37.0, MCV 106.9 H, MCH 35.3 H, MCHC 33.0, RDW 16.6, Plt Count 92 L, MPV 11.7 H, Neut % (Auto) 48.3, Lymph % (Auto) 38.3, [place] % (Auto) 7.4, Eos % (Auto) 5.1, Baso % (Auto) 0.9, Neut # (Auto) 2.6, Lymph # (Auto) 2.1, [place] # (Auto) 0.4, Eos # (Auto) 0.3, Baso # (Auto) 0.1 02/22/21 11:20: Sodium 139, Potassium 3.9, Chloride 100, Carbon Dioxide 29, Anion Gap 13.9, BUN 13, Creatinine 1.10 H, Estimated Creat Clear 69, Estimated GFR 48 L, Est GFR ( Amer) 58 L, Glucose 142 H, Calcium 9.9, Total Bilirubin 1.0, AST 39 H, ALT 38, Alkaline Phosphatase 157 H, Total Protein 8.1, Albumin 4.0, Globulin 4.1 H, Albumin/Globulin Ratio 1.0 L Result diagrams: 02/22/21 11:20 02/22/21 11:20 Orders (Tests/Meds): ED MEDICATIONS Discontinued Medications Generic Name Dose Route Start Last Admin Trade Name Freq PRN Reason Stop Dose Admin Iopamidol 75 ml 02/22/21 12:52 02/22/21 12:52 Iopamidol-370 (76%);100ml Bottle IV 02/22/21 12:53 75 ml ONCE ONE Administration Methocarbamol 500 mg 02/22/21 11:21 02/22/21 13:11 Methocarbamol 500mg Tablet PO 02/22/21 11:22 500 mg ONCE ONE Administration Sodium Chloride 10 ml 02/22/21 12:52 02/22/21 12:52 Sodium Chloride 0.9% 10ml Syr (Rad Only) IV 02/22/21 12:53 10 ml ONCE ONE Administration ORDERS Category Date Time Sta
[2021-02-22 10:31] VITALS: BP 135/72; PULSE 78; O2SAT 94
[2021-02-22 11:01] VITALS: BP 135/62; PULSE 75; O2SAT 93
[2021-02-22 11:29] LABS: Basophils # 0.1 K/mm3 (0-0.2); Basophils % 0.9 % (0.1-2.0); Eosinophils # 0.3 K/mm3 (0.0-0.4); Eosinophils % 5.1 % (0.1-12.0); Hemoglobin 12.2 g/dL (12.2-16.2); Lymphocytes # 2.1 K/mm3 (0.7-4.5); Lymphocytes % 38.3 % (10-50); Mean Corpuscular Hemoglobin 35.3 pg (27.0-31.2); Mean Corpuscular Volume 106.9 fl (81-99); Mean Platelet Volume 11.7 fl (7.4-10.4); Monocytes # 0.4 K/mm3 (0.1-1.0); Monocytes % 7.4 % (1.7-9.3); Neutrophils # 2.6 K/mm3 (1.8-7.8); Neutrophils % 48.3 % (37.0-80.0); Platelet Count 92 K/mm3 (142-424); Red Blood Count 3.46 M/mm3 (4.20-5.40); Red Cell Distribution Width 16.6 % (11.5-17.5); White Blood Count 5.4 K/mm3 (4.8-10.8)
[2021-02-22 11:35] LABS: Chloride 100 mmol/L (98-107)
[2021-02-22 11:36] LABS: Potassium 3.9 mmoL/L (3.5-5.1); Sodium 139 mmol/L (136-145)
[2021-02-22 11:38] LABS: Alanine Aminotransferase 38 U/L (12-78); Alkaline Phosphatase 157 U/L (38-126); Anion Gap 13.9 mEq/L (5-15); Aspartate Amino Transferase 39 U/L (14-36); Blood Urea Nitrogen 13 mg/dl (7-17); Calcium 9.9 mg/dl (8.4-10.2); Carbon Dioxide 29 mmol/L (22.0-30.0); Creatinine Clearance Estimated 69 mL/min (50-200); Estimated Glomerular Filt Rate 48 ml/min (>60); GFR (African American) 58 ML/MIN (>60); Globulin 4.1 g/dL (1.3-3.2); Glucose 142 mg/dl (74-100); Total Protein,Serum 8.1 g/dl (6.3-8.2)
--- NOTE | 2021-02-22 12:55 | PC.NURSE ---
pt in radiology
--- NOTE | 2021-02-22 12:58 | PC.NURSE ---
pt return from radiology
--- NOTE | 2021-02-22 14:12 | PC.NURSE ---
ER speaking with pt and family about POC
[2021-02-22 14:35] VITALS: BP 135/62; PULSE 75; RESP 18; TEMP 36.6; O2SAT 93
== END 2021-02-22 14:35 | disposition home or self-care (01) ==
PROVIDERS: Emergency Provider Emergency Medicine; PCP Nurse Practitioner Family
DX: S32.030A Wedge compression fracture of third lumbar vertebra, initial encounter for closed fracture (principal); K43.9 Ventral hernia without obstruction or gangrene; K59.00 Constipation, unspecified; I25.10 Atherosclerotic heart disease of native coronary artery without angina pectoris; J44.9 Chronic obstructive pulmonary disease, unspecified; E78.5 Hyperlipidemia, unspecified; I10 Essential (primary) hypertension; Z79.899 Other long term (current) drug therapy
CPT/HCPCS: 74177; 80053; 85025; 99282; Q9967

== ENCOUNTER 2021-03-16 14:33 | Emergency (ER) | payer MEDICARE, SELFPAY ==
[2021-03-16] VITALS (8 sets, daily range): BP systolic 108–150; BP diastolic 70–89; PULSE 65–90; RESP 18; TEMP 36.4–36.6; O2SAT 93–97; BMI 32.5
--- NOTE | 2021-03-16 15:28 | HMH.EDABDPAI ---
ED Disposition Clinical Impression: Abdominal pain Qualifiers: Abdominal location: left lower quadrant Qualified Code(s): R10.32 - Left lower quadrant pain Disposition: Admitted as Observation Condition on Discharge: Fair Instructions: DI for Acute Abdominal Pain Referrals: Ladonna Burks APRN [Primary Care Provider] - - Critical Care Critical Care Time: No Attestation: On 03/16/21, the high probability of a clinically significant, sudden or life threatening deterioration of the following system(s) required my full and direct attention, intervention and personal management. The time I documented below is in addition to time spent performing reported procedures but includes the following listed in this critical care notation. Medical Decision Making - Medardo Inquiry Pt receiving controlled substance: Yes Medardo was queried for this patient: No Risks and benefits of using a controlled substance: were discussed with pt by me Vital Signs: 03/16/21 15:07 03/16/21 19:09 Temperature 97.6 F Temperature Source Oral Pulse Rate 74 Pulse Rate [Left Radial] 75 Respiratory Rate 18 18 Blood Pressure 108/70 L Blood Pressure [Right Arm] 115/89 Blood Pressure Mean [Right Arm] 97 Blood Pressure Source Manual Cuff/ Doppler Blood Pressure Source [Right Arm] Automatic Cuff Blood Pressure Position Sitting Blood Pressure Position [Right Arm] Sitting 02 Sat by Pulse Oximetry 97 94 L Oxygen Delivery Method Room Air Room Air - Lab Data Lab Results 03/16/21 16:19: WBC 8.2, RBC 3.50 L, Hgb 11.9 L, Hct 38.1, MCV 108.7 H, MCH 33.8 H, MCHC 31.1 L, RDW 16.2, Plt Count 219, MPV 8.6, Neut % (Auto) 69.8, Lymph % (Auto) 21.9, [place] % (Auto) 4.4, Eos % (Auto) 3.6, Baso % (Auto) 0.4, Neut # (Auto) 5.7, Lymph # (Auto) 1.8, [place] # (Auto) 0.4, Eos # (Auto) 0.3, Baso # (Auto) 0.0 03/16/21 16:19: Sodium 138, Potassium 3.7, Chloride 101, Carbon Dioxide 25, Anion Gap 15.7 H, BUN 14, Creatinine 0.90, Estimated Creat Clear 73, Estimated GFR 61, Est GFR ( Amer) 73, Glucose 149 H, Calcium 9.8, Total Bilirubin 1.1, AST 30, ALT 25, Alkaline Phosphatase 169 H, Total Protein 8.6 H, Albumin 4.1, Globulin 4.5 H, Albumin/Globulin Ratio 0.9 L, Lipase 79 03/16/21 16:19: Lactate 1.2 Result diagrams: 03/16/21 16:19 03/16/21 16:19 Orders (Tests/Meds): ED MEDICATIONS Discontinued Medications Generic Name Dose Route Start Last Admin Trade Name Freq PRN Reason Stop Dose Admin Sodium Chloride 1,000 mls @ 999 mls/hr 03/16/21 15:45 03/16/21 15:57 Sod Chlor 0.9% 1000ml Bag IV 03/16/21 16:45 999 mls/hr .Q1H1M MADIE Administration Iopamidol 75 ml 03/16/21 17:11 03/16/21 17:11 Iopamidol-370 (76%);100ml Bottle IV 03/16/21 17:12 75 ml ONCE ONE Administration Morphine Sulfate 2 mg 03/16/21 15:34 03/16/21 15:58 Morphine 2mg/Ml Syringe IV 03/16/21 15:35 2 mg ONCE ONE Administration Ondansetron HCl 4 mg 03/16/21 15:35 03/16/21 15:57 Ondansetron 4mg/2ml Vial IV 03/16/21 15:36 4 mg ONCE ONE Administration Sodium Chloride 10 ml 03/16/21 17:11 03/16/21 17:11 Sodium Chloride 0.9% 10ml Syr (Rad Only) IV 03/16/21 17:12 10 ml ONCE ONE Administration ORDERS Category Date Time Status Urinalysis and Microscopic Stat Lab 03/16/21 15:33 Ordered Medical Decision Narrative: In summary, the patient is a 72-year-old female presenting for evaluation of acute progressive left-sided abdominal pain with associated nausea and vomiting as well as constipation. She is in no acute distress, afebrile and hemodynamically stable, nontoxic in appearance. Physical exam demonstrates an uncomfortable appearing female with moderate left-sided lower abdominal tenderness to palpation with guarding, normal cardiopulmonary exam, normal neurologic exam with remainder physical exam within normal limits. Differential diagnosis includes but is not limited to intra-abdominal infection, incarcerated or strangulated hernia,
--- NOTE | 2021-03-16 15:32 | CT_ITS ---
PROCEDURE INFORMATION: Exam: CT Abdomen And Pelvis With Contrast Exam date and time: 03/16/2021 3:32 PM Age: 80 years old Clinical indication: Abdominal pain; Localized; Patient HX: Left sided abd pain with vomiting, R/O obstruction; Additional info: Abdominal pain and vomiting, concern for obstr TECHNIQUE: Imaging protocol: Computed tomography of the abdomen and pelvis with contrast. Total images: 317 Radiation optimization: All CT scans at this facility use at least one of these dose optimization techniques: automated exposure control; mA and/or kV adjustment per patient size (includes targeted exams where dose is matched to clinical indication); or iterative reconstruction. Contrast material: ISOVUE; Contrast volume: 75 ml; Contrast route: IV; COMPARISON: CT ABDOMEN PELVIS W CON 02/22/2021 12:47 PM FINDINGS: Lungs: Mild bronchiectasis in the lower lobes.Patchy scarring or atelectasis in the lung bases. Heart: Mild cardiomegaly. Pacemaker leads partially visualized without gross complication or change. Retained epicardial leads noted. Diaphragm: Small hiatal hernia. The stomach is largely contracted. Liver: Normal contour. No mass lesions. No intrahepatic biliary ductal dilatation. Gallbladder and bile ducts: Small calcified gallstones layering dependently in the gallbladder lumen without CT signs of cholecystitis or biliary obstruction. Common bile duct 7.5 mm maximum diameter, within normal range for age. Pancreas: Moderate pancreatic atrophy without acute abnormality. No pancreatic ductal dilatation. Spleen: Granulomatous calcifications in the spleen without acute splenic abnormality. Adrenal glands: Right adrenal gland is normal. Unchanged very small nodule in the inferior left adrenal gland measuring 8 mm short axis which does not require further assessment based on current consensus criteria. Kidneys and ureters: No acute abnormalities. No hydronephrosis or hydroureter. No urinary tract stones are identified. Mild right renal cortical scarring unchanged. Small peripelvic cyst in the right renal hilum unchanged. This does not require further assessment. Stomach and bowel: The small bowel is nondilated with no gross abnormality. No acute colonic abnormalities. Appendix: The appendix is not identified. No secondary signs of appendicitis. Intraperitoneal space: No free fluid or air. Vasculature: Moderate atherosclerotic aortoiliac calcification without aneurysm. Lymph nodes: No adenopathy. Urinary bladder: Unremarkable as visualized. Reproductive: Prior hysterectomy. Bones/joints: No acute osseous abnormalities. Osteopenia. Moderate superior endplate compression fracture of L3 unchanged in severity, with interval vertebroplasty since prior scan 02/22/2021. There is mild inferior endplate compression fracture of the posterior half of the L2 inferior endplate which is slightly increased, with 3 mm retropulsion of the posteroinferior vertebral margin which is slightly increased, and mild-moderate central canal stenosis at this level. Moderate left foraminal stenosis at this level appears slightly increased. No paraspinous or epidural hematoma is evident. Severe disc degenerative changes L3-L4 and L4-L5 with marginal spurring and bilateral foraminal stenosis. Soft tissues: Spigelian hernia in the left lower quadrant unchanged, containing fat and herniated vessels. Very small fatty umbilical hernia. No associated bowel herniation or gross signs of strangulation. IMPRESSION: 1. Mildly increased compression fracture involving the posterior half of the L2 inferior endplate with about 30% loss of vertebral height in this
[2021-03-16 16:27] LABS: Basophils % 0.4 % (0.1-2.0); Eosinophils # 0.3 K/mm3 (0.0-0.4); Eosinophils % 3.6 % (0.1-12.0); Hematocrit 38.1 % (37.0-47.0); Hemoglobin 11.9 g/dL (12.2-16.2); Lymphocytes # 1.8 K/mm3 (0.7-4.5); Lymphocytes % 21.9 % (10-50); Mean Corpuscular HGB Conc 31.1 g/dL (31.8-35.4); Mean Corpuscular Hemoglobin 33.8 pg (27.0-31.2); Mean Corpuscular Volume 108.7 fl (81-99); Mean Platelet Volume 8.6 fl (7.4-10.4); Monocytes # 0.4 K/mm3 (0.1-1.0); Monocytes % 4.4 % (1.7-9.3); Neutrophils # 5.7 K/mm3 (1.8-7.8); Neutrophils % 69.8 % (37.0-80.0); Platelet Count 219 K/mm3 (142-424); Red Cell Distribution Width 16.2 % (11.5-17.5); White Blood Count 8.2 K/mm3 (4.8-10.8)
[2021-03-16 16:41] LABS: Chloride 101 mmol/L (98-107); Potassium 3.7 mmoL/L (3.5-5.1); Sodium 138 mmol/L (136-145)
[2021-03-16 16:43] LABS: Alanine Aminotransferase 25 U/L (12-78); Aspartate Amino Transferase 30 U/L (14-36); Blood Urea Nitrogen 14 mg/dl (7-17); Creatinine Clearance Estimated 73 mL/min (50-200); Estimated Glomerular Filt Rate 61 ml/min (>60); GFR (African American) 73 ML/MIN (>60)
[2021-03-16 16:44] LABS: Albumin Level 4.1 g/dl (3.5-5.0); Albumin/Globulin Ratio 0.9 (1.1-1.8); Alkaline Phosphatase 169 U/L (38-126); Anion Gap 15.7 mEq/L (5-15); Bilirubin,Total 1.1 mg/dl (0.2-1.3); Calcium 9.8 mg/dl (8.4-10.2); Carbon Dioxide 25 mmol/L (22.0-30.0); Globulin 4.5 g/dL (1.3-3.2); Glucose 149 mg/dl (74-100); Lipase 79 U/L (23-300); Total Protein,Serum 8.6 g/dl (6.3-8.2)
[2021-03-16 16:52] LABS: Lactic Acid 1.2 mmol/L (0.7-2.1)
--- NOTE | 2021-03-16 18:58 | PC.NURSE ---
paged dr casiano
--- NOTE | 2021-03-16 19:05 | PC.NURSE ---
NOREEN ARVIZU speaking with Dr. Davis
--- NOTE | 2021-03-16 19:11 | PC.NURSE ---
senior housekeeper notified of admission
[2021-03-16 19:20] LABS: Coronavirus 19, PCR Not Detected (NotDetected); Influenza A, PCR Not Detected (NotDetected); Influenza B, PCR Not Detected (NotDetected)
--- NOTE | 2021-03-16 19:26 | PC.NURSE ---
s/w House, there are no beds at this time. pt will be boarding in er. Pt/family notified.
--- NOTE | 2021-03-16 22:21 | PC.NURSE ---
Obtained floor bed, pt helped to the br and then stretcher bed changed to floor bed.
[2021-03-17 00:01] VITALS: BP 168/91; PULSE 85; TEMP 36.8; O2SAT 94
--- NOTE | 2021-03-17 00:07 | PC.NURSE ---
midnight vitals obtained @ this time and medicated for CUMMINS
--- NOTE | 2021-03-17 01:00 | PC.NURSE ---
pt resting quietly call light within reach
--- NOTE | 2021-03-17 02:28 | PC.NURSE ---
pt resting quietly, resp even and unlabored, call light within reach
--- NOTE | 2021-03-17 04:00 | PC.NURSE ---
pt ambulated to BR. pt voiced no c/o @ this time. call light within reach
[2021-03-17 04:33] VITALS: BP 121/92; PULSE 90; TEMP 36.7; O2SAT 93
--- NOTE | 2021-03-17 06:43 | PC.NURSE ---
pt asleep, call light within reach.
--- NOTE | 2021-03-17 07:21 | HMH.PHAVTE ---
[facility] Pharmacy VTE Monitoring - Patient Demographics Admission date: 03/16/21 Report Date: 03/17/21 Time: 07:21 Allergies/Adverse Reactions: Patient Allergies No Known Drug Allergies Allergy (Unknown, Verified 02/02/21 15:51) Height: 1.75 m Weight: 99.79 kg Patient Problems: Current Active Problems (Last Updated 01/24/21 @ 14:08 by Evon Pearson RN) Abdominal pain (Acute) - VTE Risk Labs: VTE Related Lab Results Hgb 11.9 g/dL (12.2-16.2) L 03/16/21 16:19 Hct 38.1 % (37.0-47.0) 03/16/21 16:19 Plt Count 219 K/mm3 (142-424) 03/16/21 16:19 BUN 14 mg/dl (7-17) 03/16/21 16:19 Creatinine 0.90 mg/dl (0.52-1.04) 03/16/21 16:19 Estimated Creat Clear 73 mL/min (50-200) 03/16/21 16:19 Clinical Trial Participant: No - Prophylaxis VTE Prophylaxis Ordered?: Yes Types of VTE Prophylaxis: TEDS Knee High
--- NOTE | 2021-03-17 07:27 | PC.NURSE ---
Dr. Solis at bedside this morning. Received report from overnight cashier. Went in and assessed pt. She asked for clear liquid tray. Called dietary and ordered tray. Pt had no other needs at this time.
[2021-03-17 07:31] VITALS: BP 125/70; PULSE 78; RESP 16; O2SAT 93
--- NOTE | 2021-03-17 07:58 | HMH.HP ---
*Admission Date: 03/16/21 *Chief complaint: Left lower quadrant abdominal pain *History of present illness: 80-year-old female presented to the emergency department with left lower quadrant abdominal pain that have been present upon awakening that morning. Patient has a known subgaleal hernia and is due for outpatient surgical consultation. She reports lack of bowel movement in the last 48 hours prior to presentation. She developed nausea and vomiting during the day and came to the ER with her daughter. Patient was given morphine for pain control which seemed to improve the patient's pain. She tells me she had some additional episodes of nausea and vomiting and decision was made to admit the patient. She is remained stable overnight. [facility] History I have reviewed the patient's past medical history: Yes Medical History: Reports:: Asthma, Cancer, Chronic Obstructive Pulmonary Disease (COPD), Congenital Heart Disease, Coronary Artery Disease, Cerebrovascular Accident, Hyperlipidemia, Hypertension, Internal Pacemaker Denies:: Diabetes Mellitus Type 1, Diabetes Mellitus Type 2, Lung Disease, Seizures *Have you ever received a pneumonia vaccine?: No *Have you received a flu vaccine this season?: No Other Medical History: Reports: Thyroid Disease, Other Other Surgeries: Yes: Appendectomy, Colonoscopy, Coronary Stent, Hysterectomy-Total, Pacemaker, Other - *Social History Smoking Status: Never smoker Alcohol Intake: never Substance Use Type: denies use *Occupational Status:: retired *Travel in the last 8 weeks: None Family Hx:: Coronary Artery Disease Review of Systems - Review of Systems Review of systems:: pertinent systems reviewed and negative unless documented below Meds Home Medications Medication Instructions Recorded Confirmed Type Aspirin [Aspir 81] 81 mg PO DAILY 11/27/17 03/16/21 History allopurinoL [Allopurinol 300mg 300 mg PO DAILY 11/27/17 03/16/21 History tablet] atorvastatin 40 mg tablet 40 mg PO DAILY #90 tab 02/03/20 03/16/21 Rx levothyroxine 100 mcg tablet 100 mcg PO DAILY tab 11/02/20 03/16/21 History carvedilol 25 mg tablet 25 mg PO BID #60 tab 01/25/21 03/16/21 Rx Hydrocod/Acet 5/325 mg [[place] 1 tab PO Q6HP PRN #12 tab 02/22/21 03/16/21 Rx 5/325mg tablet] methocarbamoL [Methocarbamol 500mg 500 mg PO BID PRN #20 tab 02/22/21 03/16/21 Rx Tablet] Losartan/Hydrochlorothiazide See Rx Instructions .ROUTE .COMPLEX 03/16/21 03/16/21 History [Losartan-Hctz 50-12.5 mg Tab] [id number]/Sod Sulf,Bicarb,Cl/KCl 240 ml PO Q10M 03/16/21 03/16/21 History [Peg-3350 and Electrolytes Soln] polyethylene glycoL 3350 17 g PO DAILY 03/16/21 03/16/21 History [Smoothlax] Allergies Allergy/AdvReac Type Severity Reaction Status Date / Time No Known Drug Allergies Allergy Unknown Verified 02/02/21 15:51 Exam Vital signs and Labs for Last 24 Hours: Temp Pulse Resp BP Pulse Ox 98.1 F 78 16 125/70 93 L 03/17/21 04:33 03/17/21 07:31 03/17/21 07:31 03/17/21 07:31 03/17/21 07:31 Laboratory Results - last 24 hr 03/16/21 16:19: WBC 8.2, RBC 3.50 L, Hgb 11.9 L, Hct 38.1, MCV 108.7 H, MCH 33.8 H, MCHC 31.1 L, RDW 16.2, Plt Count 219, MPV 8.6, Neut % (Auto) 69.8, Lymph % (Auto) 21.9, [place] % (Auto) 4.4, Eos % (Auto) 3.6, Baso % (Auto) 0.4, Neut # (Auto) 5.7, Lymph # (Auto) 1.8, [place] # (Auto) 0.4, Eos # (Auto) 0.3, Baso # (Auto) 0.0 03/16/21 16:19: Sodium 138, Potassium 3.7, Chloride 101, Carbon Dioxide 25, Anion Gap 15.7 H, BUN 14, Creatinine 0.90, Estimated Creat Clear 73, Estimated GFR 61, Est GFR ( Amer) 73, Glucose 149 H, Calcium 9.8, Total Bilirubin 1.1, AST 30, ALT 25, Alkaline Phosphatase 169 H, Total Protein 8.6 H, Albumin 4.1, Globulin 4.5 H, Albumin/Globulin Ratio 0.9 L, Lipase 79 10/20/21 16:19: Lactate 1.2 03/16/21 19:12: SARS-CoV-2 (PCR) Not detected, Influenza A Untype (PCR) Not detected, Influenza Type B (PCR) Not detected I & O for Last 24 hours: Intake & Output 1
--- NOTE | 2021-03-17 09:27 | HMH.PHAINT ---
MEDICATION RECONCILIATION COMPLETE USING SURESCRIPTS AND PREVIOUS OFFICE VISIT
--- NOTE | 2021-03-17 09:57 | PC.NURSE ---
Checked on pt she is laying supine in bed just resting. She stated she did not need anything at this time. Will continue to monitor.
[2021-03-17 10:35] VITALS: BP 132/65; PULSE 81; RESP 18; TEMP 36.6; O2SAT 93
--- NOTE | 2021-03-17 11:20 | PC.NURSE ---
Pt is laying in bed. Doesn't need anything. Will continue to monitor.
--- NOTE | 2021-03-17 11:28 | PC.NURSE ---
Spoke with Dr. Solis he stated that once pt has a BM she is fine to be D/C home. He would like to be called once this occurs.
--- NOTE | 2021-03-17 11:51 | PC.NURSE ---
updated that pt is still unable to have BM after interventions that were order.
--- NOTE | 2021-03-17 12:18 | PC.NURSE ---
Helped pt to bed side commode. She has two pinky sized BM that was dumped in the bathroom. She stated that she is having jelly like substance coming from her rectum. Will continue to monitor.
--- NOTE | 2021-03-17 12:58 | PC.NURSE ---
Checked on pt laying supine in bed. Took her water with ice, and encouraged her to try to have bowel movement on the bedside commode in room. Will continue to monitor.
--- NOTE | 2021-03-17 13:55 | PC.NURSE ---
Pt is resting in bed. She is anxious about being able to leave. She did not need anything. Will continue to monitor.
--- NOTE | 2021-03-17 14:43 | PC.NURSE ---
Spoke with Dr. Solis and he advised since pt has started to have small bowel movements he is ok with her being d/c home. Took verbal order for her to be discharged. He advised he would like for her to follow-up in his office tomorrow. Called Dr. Solis office and they scheduled her an appt. for 2:30 on 03/18.
--- NOTE | 2021-03-17 14:57 | PC.NURSE ---
Called daughter and let her know that pt was ready to be d/c'ed home, and she had a follow up appt tomorrow at 2:30. Daughter advised she would be here in a couple of hours to pick her up.
[2021-03-17 16:40] VITALS: BP 124/78; PULSE 84; RESP 16; TEMP 36.8; O2SAT 98
== END 2021-03-17 16:46 | disposition admitted as inpatient to this hospital (09) ==
LOC: ER 19:41 → 2ND 19:56
PROVIDERS: Emergency Provider Student in an Organized Health Care Education/Training Program; PCP Nurse Practitioner Family
DX: K59.00 Constipation, unspecified (principal); K43.9 Ventral hernia without obstruction or gangrene; S32.030A Wedge compression fracture of third lumbar vertebra, initial encounter for closed fracture; Z95.0 Presence of cardiac pacemaker; R10.32 Left lower quadrant pain; J44.9 Chronic obstructive pulmonary disease, unspecified; E78.5 Hyperlipidemia, unspecified; I10 Essential (primary) hypertension
CPT/HCPCS: 36415; 74177; 80053; 83605; 83690; 85025; 96365; 96375; 96376; 99283; C9803; J2405; Q9967; U0003; U0005

== ENCOUNTER → 2021-04-27 13:21 | Outpatient (CLI) | payer MEDICARE, SELFPAY ==
--- NOTE | 2021-04-27 | ECG_ITS ---
APPROVED REPORT Exam: Resting ECG HR:69 bpm ECG Measurements Heart Rate 69 AXES NM 232 P 41 QRSd 132 QRS -57 QT 460 T 30 QTc 492 Conclusion Sinus rhythm with 1st degree AV block Right bundle branch block Left anterior fascicular block Bifascicular block Moderate voltage criteria for LVH, may be normal variant Abnormal ECG Electronically signed by : Kosta Davis MD 04/28/2021 20:25:18
[2021-04-27 13:56] LABS: Basophils % 0.4 % (0.1-2.0); Eosinophils # 0.3 K/mm3 (0.0-0.4); Eosinophils % 5.1 % (0.1-12.0); Hemoglobin 11.8 g/dL (12.2-16.2); Lymphocytes # 2.2 K/mm3 (0.7-4.5); Lymphocytes % 35.4 % (10-50); Mean Corpuscular HGB Conc 33.8 g/dL (31.8-35.4); Mean Corpuscular Hemoglobin 34.7 pg (27.0-31.2); Mean Corpuscular Volume 102.7 fl (81-99); Mean Platelet Volume 8.6 fl (7.4-10.4); Monocytes # 0.4 K/mm3 (0.1-1.0); Neutrophils # 3.2 K/mm3 (1.8-7.8); Neutrophils % 53.2 % (37.0-80.0); Platelet Count 216 K/mm3 (142-424); Red Blood Count 3.41 M/mm3 (4.20-5.40); Red Cell Distribution Width 16.8 % (11.5-17.5); White Blood Count 6.1 K/mm3 (4.8-10.8)
[2021-04-27 14:25] LABS: Chloride 100 mmol/L (98-107); Potassium 4.7 mmoL/L (3.5-5.1); Sodium 136 mmol/L (136-145)
[2021-04-27 14:28] LABS: Anion Gap 15.7 mEq/L (5-15); Blood Urea Nitrogen 14 mg/dl (7-17); Carbon Dioxide 25 mmol/L (22.0-30.0); Estimated Glomerular Filt Rate 69 ml/min (>60); GFR (African American) 84 ML/MIN (>60)
[2021-04-27 14:29] LABS: Calcium 10.2 mg/dl (8.4-10.2); Glucose 143 mg/dl (74-100)
== END ==
PROVIDERS: Visit Provider Surgery
DX: K43.9 Ventral hernia without obstruction or gangrene (principal); M54.40 Lumbago with sciatica, unspecified side; Z01.812 Encounter for preprocedural laboratory examination; Z20.822 Contact with and (suspected) exposure to COVID-19
CPT/HCPCS: 36415; 80048; 85025; 93005; C9803; U0003; U0005

== ENCOUNTER 2021-04-29 06:07 | Day surgery (SDC) | payer MEDICARE, SELFPAY ==
[2021-04-25 13:20] VITALS: BMI 32.5
[2021-04-29] VITALS (12 sets, daily range): BP systolic 123–158; BP diastolic 66–94; PULSE 62–85; RESP 14–20; TEMP 36.5–43; O2SAT 90–94
--- NOTE | 2021-04-29 07:08 | P.PN_ITS ---
[facility] Anesthesia Checklist - Patient Identification Patient Identification: Arm Band - Structural Data Admitted From: Home Planned Operative Procedure/s: Hernia repair Consent for Planned Operative Procedure(s) Verified: Yes - NPO Status Verified Time NPO: 00:00 - Additional verifications Anesthesia Reactions: No - Airway Assessment C-Spine Mobility Assessed: Yes TMJ Mobility Assessed: Yes Dentition: Edentulous - Neurological Assessment Level of Consciousness: Awake Hx Seizures: No Numbness or tingling in extremities: No - Anesthesia Plan Anesthesia Risk discussed: Yes Anesthesia Plan: Verified ASA Class: III Anesthesia Type: General [facility] History I have reviewed the patient's past medical history: Yes Medical History: Reports:: Asthma, Cancer (colon cancer), Chronic Obstructive Pulmonary Disease (COPD), Congenital Heart Disease, Coronary Artery Disease, Cerebrovascular Accident, Hyperlipidemia, Hypertension, Internal Pacemaker Denies:: Diabetes Mellitus Type 1, Diabetes Mellitus Type 2, Lung Disease, MRSA, Seizures *Have you ever received a pneumonia vaccine?: Yes *Have you received a flu vaccine this season?: Yes Other Medical History: Reports: Thyroid Disease, Other Anesthesia experience/problems:: None Other Surgeries: Yes: Appendectomy, Colonoscopy, Coronary Stent, Hysterectomy- Total, Pacemaker, Other Amputation: No Fractures: Yes - *Social History Last grade of school completed: 11th or 12th Smoking Status: Never smoker Alcohol Intake: never Substance Use Type: denies use *Occupational Status:: retired Housing: house Household Members: none *Travel in the last 8 weeks: None Family Hx:: Cancer
--- NOTE | 2021-04-29 09:06 | HMH.OPNOTE ---
Date of procedure: 04/29/21 Pre-op Diagnosis:: Left Spigelian hernia Post-op Diagnosis:: Same Procedure performed:: Laparoscopic-assisted open repair of left spigelian hernia Surgeon:: Micky Roland MD SURGICAL SUPERVISOR:: Priscila Fernandez Anesthesia: GETA Estimated blood loss (mL): 25 Operative findings:: Large volume of incarcerated omentum Operative note:: After informed consent was obtained the patient was taken to the operating room and placed in the supine position. General anesthesia was induced and her abdomen was prepped and draped in a sterile fashion. After infiltration local anesthetic a stab incision was made in the left upper quadrant. A Veress needle was placed in position. The abdomen was insufflated. A 5 mm optical trocar was placed in the left mid flank and an additional 5 mm trocar was placed along the left mid abdomen. Evaluation/inspection revealed significant adhesions along the anterior abdominal wall. Careful blunt dissection was utilized to take down multiple adhesions. The hernia was easily visualized. A large volume of incarcerated omentum was noted. No obvious incarcerated small bowel or colon was seen. Careful dissection to reduce the incarcerated contents was only partially successful secondary to dense adhesions and sheer volume of omentum. An incision was made overlying the hernia. A combination of blunt dissection and electrocautery was utilized to transect through the deeper subcutaneous tissue. The hernia sac and incarcerated omentum were carefully dissected free from surrounding tissue. The omentum was carefully transected with electrocautery and the entire contents were passed off for pathologic evaluation. No obvious colonic incarceration noted. No sign of bowel injury was seen. An 8 cm Ventralex mesh was then secured in position with interrupted 0 Ethibond. A primary closure was then completed with 0 Ethibond. Evaluation laparoscopically revealed the mesh to be in good position. The OPTifix device was then used to secure the inferior margin of the mesh. All trocars were removed. The deep subcutaneous tissue at the left lower quadrant incision was reapproximated with interrupted Vicryl. Skin was then stapled and dressings were applied. The patient was transferred to recovery in stable condition. Condition: stable Disposition: PACU Specimens:: Hernia sac/omentum Complications:: No immediate
--- NOTE | 2021-04-29 09:15 | P.PN_ITS ---
[facility] Anesthesia Record Part I Intake, IV Amount: 800 Estimated blood loss (mL): 10 Urine output (mL): 150 Blood Pressure: 143/73 SaO2: 93 Pulse Rate: 65 Respiratory Rate: 14 Temperature: 98.3 F Patient is:: Drowsy, Oral/Nasal airway Stable to PACU at:: 09:14
--- NOTE | 2021-04-29 10:56 | HMH.ANESII ---
[facility] Anesthesia Record Part II Discharge Time: 09:54 Destination: Surgical Day Care (OP Surgery) PACU nurse assessment reviewed?: Yes Patient Condition:: Good Anesthesia Complications:: None Swallowing reflex intact?: Yes Cyanosis?: No Blood Pressure: 154/87 Pulse Rate: 85 Temperature: 98.3 F Mental Status: Alert & Oriented Pain level:: 5 Nausea and/or vomitting:: None Intake, IV Amount: 0
[2021-04-29 12:45] LABS: Microscopic,Cath URINE MICROSCOPIC (MICROSCOPIC)
[2021-04-29 13:15] LABS: Appearance,Urine/Cath CLEAR (Clear); Bilirubin,Cath Negative (Negative); Blood, Urine/Cath Negative (Negative); Color,Urine/Cath YELLOW (Yellow); Glucose,Urine/Cath (UA) Negative (Negative); Ketones,Urine/Cath Negative (Negative); Leukocyte Esterase,Cath Negative (Negative); Nitrate,Cath Negative (Negative); PH,Urine/Cath 6.5 (5.0-8.5); Protein,Urine/Cath Negative (Negative); Urobilinogen,Cath 0.2 EU/dl (0.2)
[2021-04-29 14:26] LABS: WBC,Urine/Cath Occasional #/hpf (0-3)
[2021-04-29 14:27] LABS: Bacteria,Urine/Cath TRACE /lpf
== END 2021-04-29 10:33 | disposition home or self-care (01) ==
LOC: OR 06:09
PROVIDERS: PCP Nurse Practitioner Family; Visit Provider Surgery
DX: I10 Essential (primary) hypertension (principal); K43.9 Ventral hernia without obstruction or gangrene; J45.909 Unspecified asthma, uncomplicated; Z85.038 Personal history of other malignant neoplasm of large intestine; J44.9 Chronic obstructive pulmonary disease, unspecified; I25.10 Atherosclerotic heart disease of native coronary artery without angina pectoris; E78.5 Hyperlipidemia, unspecified; Z95.0 Presence of cardiac pacemaker; Z80.9 Family history of malignant neoplasm, unspecified; Z79.899 Other long term (current) drug therapy; Z79.82 Long term (current) use of aspirin
CPT/HCPCS: 49561; 49568; 81001; 88302; 96374; C1781; J0131; J2405

== ENCOUNTER → 2021-09-26 12:37 | Outpatient (CLI) | payer MEDICARE, SELFPAY ==
--- NOTE | 2021-09-26 12:38 | CA_ITS ---
FINAL REPORT TECHNIQUE: Color Doppler, duplex Doppler and simmons scale sonography of the bilateral neck arterial vasculature was performed. Velocities were measured in the carotid arteries. Stenosis evaluation based on the validated velocity criteria. CLINICAL HISTORY: TRISTAN, Hx- Rt ICA stent. Bilateral antegrade flow in vertebral arteries. Rt ICA stenosis 50-69% stenosis. Lt ICA 20-49% stenosis FINDINGS: The peak systolic velocity of the right common carotid artery is 136 cm/s. The peak systolic velocity of the right internal carotid artery is 221 cm/s and end diastolic velocity 54 cm/s. The ICA/CCA ratio is 1.9. A moderate amount of plaque is present. The right external carotid artery is patent. The right vertebral artery is patent with antegrade flow. The peak systolic velocity of the left common carotid artery is 96 cm/s. The peak systolic velocity of the left internal carotid artery is 109 cm/s and end diastolic velocity 27 cm/s. The ICA/CCA ratio is 1.1. A mild amount of plaque is present. The left external carotid artery is patent.The left vertebral artery is patent with antegrade flow. IMPRESSION: Less than 50% left carotid stenosis. 50-69% right carotid stenosis. Bilateral patent vertebral arteries with antegrade flow. If indicated, CTA or MRA could further evaluate. Reviewed, Interpreted and Dictated by Francis Sheridan III, MD Transcribed by Juliaen Hodgson Authenticated by Francis Sheridan III, MD on 09/26/2021 02:41:[address] [facility]
== END ==
PROVIDERS: PCP Nurse Practitioner Family; Visit Provider Physician Assistant
DX: I77.9 Disorder of arteries and arterioles, unspecified (principal); R09.89 Other specified symptoms and signs involving the circulatory and respiratory systems
CPT/HCPCS: 93880

== ENCOUNTER → 2021-10-08 08:44 | Outpatient (CLI) | payer MEDICARE, SELFPAY | PROVIDERS: Visit Provider Surgery | DX: Z01.812 Encounter for preprocedural laboratory examination (principal); Z11.52 Encounter for screening for COVID-19; Z12.11 Encounter for screening for malignant neoplasm of colon; Z86.010 Personal history of colon polyps | CPT/HCPCS: C9803; U0003; U0005 ==

== ENCOUNTER 2021-10-11 07:14 | Day surgery (SDC) | payer MEDICARE, SELFPAY ==
[2021-10-10 12:10] VITALS: BMI 30.2
[2021-10-11 07:32] VITALS: BP 158/87; PULSE 72; RESP 18; TEMP 36.6; O2SAT 95
--- NOTE | 2021-10-11 08:13 | HMH.ANESCL ---
[facility] Anesthesia Checklist - Patient Identification Patient Identification: Arm Band - Structural Data Admitted From: Home Planned Operative Procedure/s: Colonoscopy Consent for Planned Operative Procedure(s) Verified: Yes - NPO Status Verified Time NPO: 00:00 - Additional verifications Anesthesia Reactions: No Hx Blood Transfusions: No Blood Transfusion Reaction: No - Airway Assessment C-Spine Mobility Assessed: Yes TMJ Mobility Assessed: Yes Dentition: Edentulous - Neurological Assessment Level of Consciousness: Awake Hx Seizures: No Numbness or tingling in extremities: No - Anesthesia Plan Anesthesia Risk discussed: Yes Anesthesia Plan: Verified ASA Class: III Anesthesia Type: MAC [facility] History I have reviewed the patient's past medical history: Yes Medical History: Reports:: Cancer (nh lymphoma), Congenital Heart Disease, Coronary Artery Disease, Cerebrovascular Accident, Hyperlipidemia, Hypertension, Internal Pacemaker Denies:: Diabetes Mellitus Type 1, Diabetes Mellitus Type 2, Lung Disease, MRSA, Seizures *Have you ever received a pneumonia vaccine?: Yes *Have you received a flu vaccine this season?: Yes Other Medical History: Reports: Thyroid Disease, Other. Denies: Blood Transfusion Reaction Anesthesia experience/problems:: None Other Surgeries: Yes: Appendectomy, Colonoscopy, Coronary Stent, Hernia Repair, Hysterectomy-Total, Pacemaker, Other Amputation: No Fractures: Yes - *Social History Last grade of school completed: High school graduate Smoking Status: Never smoker Alcohol Intake: never Substance Use Type: denies use *Occupational Status:: retired Housing: house Household Members: none *Travel in the last 8 weeks: None Family Hx:: Cancer
[2021-10-11 08:23] VITALS: O2SAT 98
--- NOTE | 2021-10-11 09:06 | P.PCN_ITS ---
- Procedure: Date: 10/11/21 Patient Date of :: 1940 Procedure Performed:: Colonoscopy with polypectomy and biopsy Indications:: History of colon polyps Performing Provider:: Micky Roland MD Referring Provider:: . Sedation:: Monitored anesthesia care Procedure:: After informed consent was obtained the patient was taken to the endoscopy suite. Sedation ensued after the patient was transferred to the left lateral decubitus position. Pulse, blood pressure, and oxygen saturation were monitored throughout the procedure. Digital rectal exam revealed no significant abnormality. The colonoscope was placed in position. The entire colon was evaluated. The colonoscope was carefully removed and the patient was transferred to recovery in stable condition. Please see findings and specimens below for detail. Findings:: Bowel preparation moderate to poor Hemorrhoidal tags/cushions Lobulated ulcerated cecal/periappendiceal lesions Polyp at 7 cm Specimens:: Biopsy of patchy lobulated/ulcerated inflammation in periappendiceal region Polyp at 7 cm (cold snare) Recommendations:: Timing of repeat colonoscopy is pending pathology but will likely be between 6- 12 months with extended bowel preparation. Surgical intervention may be required pending pathologic evaluation of lobulated ulcerated periappendiceal/cecal lesions. Complications:: No immediate Estimated blood obtained (mL): 1
[2021-10-11 09:10] VITALS: BP 115/61; PULSE 60; RESP 12; TEMP 36.6; O2SAT 92
[2021-10-11 09:20] VITALS: BP 131/70; PULSE 60; RESP 16; O2SAT 94
[2021-10-11 09:30] VITALS: BP 140/85; PULSE 64; RESP 16; O2SAT 96
[2021-10-11 09:40] VITALS: BP 156/80; PULSE 60; RESP 16; TEMP 36.6; O2SAT 97
== END 2021-10-11 09:45 | disposition home or self-care (01) ==
LOC: OUTP 07:17
PROVIDERS: PCP Nurse Practitioner Family; Visit Provider Surgery
PROC: 0DJD8ZZ Inspection of Lower Intestinal Tract, Via Natural or Artificial Opening Endoscopic (ICD-10-PCS; principal; 2021-10-11 08:30)
DX: Z12.11 Encounter for screening for malignant neoplasm of colon (principal); K62.1 Rectal polyp; K64.9 Unspecified hemorrhoids; K63.89 Other specified diseases of intestine; Z86.010 Personal history of colon polyps; I25.10 Atherosclerotic heart disease of native coronary artery without angina pectoris; E78.5 Hyperlipidemia, unspecified; I10 Essential (primary) hypertension; E07.9 Disorder of thyroid, unspecified; Z95.0 Presence of cardiac pacemaker; Z85.72 Personal history of non-Hodgkin lymphomas; Z86.73 Personal history of transient ischemic attack (TIA), and cerebral infarction without residual deficits
CPT/HCPCS: 45385; 88305; 88342; 88360; 88364; 88365

== ENCOUNTER 2021-10-27 10:27 | Emergency (ER) | payer MEDICARE, SELFPAY ==
--- NOTE | 2021-10-27 10:27 | ECG_ITS ---
APPROVED REPORT Exam: Resting ECG HR:71 bpm ECG Measurements Heart Rate 71 AXES SC 225 P 46 QRSd 138 QRS -56 QT 415 T 67 QTc 438 Conclusion SINUS RHYTHM WITH FIRST DEGREE AV BLOCK RIGHT BUNDLE BRANCH BLOCK [120+ ms QRS DURATION, UPRIGHT V1, 40+ ms S IN I/aVL/V4/V5/V6] LEFT ANTERIOR FASCICULAR BLOCK [QRS AXIS <= -45, QR IN I, RS IN II] VOLTAGE CRITERIA FOR LVH [MEETS CRITERIA IN ONE OF: R(aVL), S(V1), R(V5), R(V5/V6)+S(V1)] POSSIBLE SEPTAL MYOCARDIAL INFARCTION , OF INDETERMINATE AGE [30 ms Q WAVE IN V1/V2] ABNORMAL ECG UNCONFIRMED REPORT Electronically signed by : Kosta Davis MD 10/27/2021 21:21:40
--- NOTE | 2021-10-27 10:37 | XR_ITS ---
FINAL REPORT CLINICAL HISTORY: cough COMPARISON: December 01, 2020 FINDINGS: A single portable view of the chest was obtained. There is a right subclavian pacemaker. The heart size and pulmonary vascularity are within normal limits. The mediastinum is within normal limits. There is mild bibasilar atelectasis or scarring. There is partially improved aeration of the left lung base since the prior exam. The bony thorax is intact. IMPRESSION: Mild bibasilar atelectasis or scarring. Improved aeration of the left lung base since prior exam. Reviewed, Interpreted and Dictated by Francis Sheridan III, MD Transcribed by Ashley Strong Authenticated and [facility]
[2021-10-27 10:38] VITALS: BP 166/71; PULSE 77; RESP 17; TEMP 37; O2SAT 94; BMI 32.3
--- NOTE | 2021-10-27 10:50 | HMH.EDGENADL ---
ED Disposition Clinical Impression: Chest wall pain Disposition: Home, Self-Care Condition on Discharge: Good Instructions: DI for Atypical Chest Pain Prescriptions: Hydrocod/Acet 5/325 mg [Holliday 5/325mg tablet] 1 tab PO Q6HP PRN #12 tab PRN Reason: Moderate Pain Transmission Status: Sent to [facility] #[id number] - Critical Care Critical Care Time: No Attestation: On , the high probability of a clinically significant, sudden or life threatening deterioration of the following system(s) required my full and direct attention, intervention and personal management. The time I documented below is in addition to time spent performing reported procedures but includes the following listed in this critical care notation. Medical Decision Making - Medical Records Medical records reviewed: Yes: I reviewed the patient's medical records. - Medardo Inquiry Pt receiving controlled substance: No Vital Signs: 10/27/21 10:38 10/27/21 11:01 10/27/21 11:30 Temperature 98.6 F Temperature Source Oral Pulse Rate 67 60 Pulse Rate [Left Radial] 77 Respiratory Rate 17 18 16 Blood Pressure 109/67 L 118/66 Blood Pressure [Right Arm] 166/71 H Blood Pressure Mean 81 83 Blood Pressure Mean [Right Arm] 102 02 Sat by Pulse Oximetry 94 L 94 L 93 L Oxygen Delivery Method Room Air 10/27/21 12:01 Temperature Temperature Source Pulse Rate 62 Pulse Rate [Left Radial] Respiratory Rate 18 Blood Pressure 111/52 L Blood Pressure [Right Arm] Blood Pressure Mean 84 Blood Pressure Mean [Right Arm] 02 Sat by Pulse Oximetry 92 L Oxygen Delivery Method - Lab Data Lab Results 10/27/21 10:56: WBC 7.3, RBC 3.22 L, Hgb 11.3 L, Hct 35.0 L, MCV 108.7 H, MCH 35.2 H, MCHC 32.3, RDW 16.1, Plt Count 179, MPV 8.9, Neut % (Auto) 54.1, Lymph % (Auto) 32.3, [place] % (Auto) 6.5, Eos % (Auto) 5.0, Baso % (Auto) 1.9, Neut # (Auto) 3.9, Lymph # (Auto) 2.4, [place] # (Auto) 0.5, Eos # (Auto) 0.4, Baso # (Auto) 0.1 10/27/21 10:56: PT 11.5, INR 1.02, APTT 22.5 L 10/27/21 10:56: Sodium 138, Potassium 3.8, Chloride 102, Carbon Dioxide 26, Anion Gap 13.8, BUN 18 H, Creatinine 1.10 H, Estimated Creat Clear 59, Estimated GFR 48 L, Est GFR ( Amer) 58 L, Glucose 123 H, Calcium 10.1, Total Bilirubin 0.7, AST 29, ALT 20, Alkaline Phosphatase 141 H, Troponin I < 0.01, NT-Pro-B Natriuret Pep 341, Total Protein 9.1 H, Albumin 4.3, Globulin 4.8 H, Albumin/Globulin Ratio 0.9 L, Lipase 40 10/27/21 13:42: Urine Color Yellow, Urine Appearance Sl cloudy, Urine pH 5.5, Ur Specific [place] 1.010, Urine Protein Negative, Urine Glucose (UA) Negative, Urine Ketones Negative, Urine Blood Trace-i, Urine Nitrate Negative, Urine Bilirubin Negative, Urine Urobilinogen 0.2, Ur Leukocyte Esterase 2+ A Result diagrams: 10/27/21 10:56 10/27/21 10:56 Orders (Tests/Meds): ED MEDICATIONS Generic Name Dose Route Start Last Admin Trade Name Freq PRN Reason Stop Dose Admin Sodium Chloride 8 ml 10/27/21 11:32 Sodium Chloride 0.9% 10ml Vial IV 11/26/21 11:31 NEEDED PRN dilute pepcid Discontinued Medications Generic Name Dose Route Start Last Admin Trade Name Freq PRN Reason Stop Dose Admin Famotidine 20 mg 10/27/21 11:32 10/27/21 11:52 Famotidine 20mg/2ml Vial IV 10/27/21 11:33 20 mg ONCE ONE Administration Iopamidol 75 ml 10/27/21 12:26 10/27/21 12:29 Iopamidol-370 (76%);100ml Bottle IV 10/27/21 12:27 75 ml ONCE ONE Administration Morphine Sulfate 4 mg 10/27/21 11:32 10/27/21 11:52 Morphine 4mg/Ml Syringe IV 10/27/21 11:33 4 mg ONCE ONE Administration Ondansetron HCl 4 mg 10/27/21 11:32 10/27/21 11:52 Ondansetron 4mg/2ml Vial IV 10/27/21 11:33 4 mg ONCE ONE Administration Sodium Chloride 50 ml 10/27/21 12:26 10/27/21 12:29 0.9 % Sodium Chloride 50 Ml Vial IV 10/27/21 12:27 50 ml ONCE ONE Administration Sodium Chloride 10 ml 10/27/21 12:26 10/27/21 12:29 Sodium Chlo
[2021-10-27 11:01] VITALS: BP 109/67; PULSE 67; RESP 18; O2SAT 94
[2021-10-27 11:08] LABS: Basophils # 0.1 K/mm3 (0-0.2); Basophils % 1.9 % (0.1-2.0); Eosinophils # 0.4 K/mm3 (0.0-0.4); Hemoglobin 11.3 g/dL (12.2-16.2); Lymphocytes # 2.4 K/mm3 (0.7-4.5); Lymphocytes % 32.3 % (10-50); Mean Corpuscular HGB Conc 32.3 g/dL (31.8-35.4); Mean Corpuscular Hemoglobin 35.2 pg (27.0-31.2); Mean Corpuscular Volume 108.7 fl (81-99); Mean Platelet Volume 8.9 fl (7.4-10.4); Monocytes # 0.5 K/mm3 (0.1-1.0); Monocytes % 6.5 % (1.7-9.3); Neutrophils # 3.9 K/mm3 (1.8-7.8); Neutrophils % 54.1 % (37.0-80.0); Platelet Count 179 K/mm3 (142-424); Red Blood Count 3.22 M/mm3 (4.20-5.40); Red Cell Distribution Width 16.1 % (11.5-17.5); White Blood Count 7.3 K/mm3 (4.8-10.8)
[2021-10-27 11:17] LABS: Chloride 102 mmol/L (98-107); Potassium 3.8 mmoL/L (3.5-5.1); Sodium 138 mmol/L (136-145)
[2021-10-27 11:19] LABS: Blood Urea Nitrogen 18 mg/dl (7-17); Creatinine Clearance Estimated 59 mL/min (50-200); Estimated Glomerular Filt Rate 48 ml/min (>60); GFR (African American) 58 ML/MIN (>60)
[2021-10-27 11:20] LABS: Alanine Aminotransferase 20 U/L (12-78); Albumin Level 4.3 g/dl (3.5-5.0); Albumin/Globulin Ratio 0.9 (1.1-1.8); Alkaline Phosphatase 141 U/L (38-126); Anion Gap 13.8 mEq/L (5-15); Aspartate Amino Transferase 29 U/L (14-36); Bilirubin,Total 0.7 mg/dl (0.2-1.3); Calcium 10.1 mg/dl (8.4-10.2); Carbon Dioxide 26 mmol/L (22.0-30.0); Globulin 4.8 g/dL (1.3-3.2); Glucose 123 mg/dl (74-100); Lipase 40 U/L (23-300); Total Protein,Serum 9.1 g/dl (6.3-8.2)
[2021-10-27 11:28] LABS: NT Pro Brain Natriuretic Pep. 341 pg/mL (0-450)
[2021-10-27 11:30] VITALS: BP 118/66; PULSE 60; RESP 16; O2SAT 93
[2021-10-27 11:32] LABS: Troponin I < 0.01 ng/ml (0.00-0.034)
[2021-10-27 11:36] LABS: Activated Partial Thrombo Time 22.5 seconds (22.8-30.6); INR 1.02 (0.9-1.1); Prothrombin Time 11.5 seconds (10.1-12.5)
--- NOTE | 2021-10-27 11:53 | CT_ITS ---
FINAL REPORT TECHNIQUE: Then section axial CT images of the chest were obtained with contrast. Three-D reformatted images were also obtained.This study was performed with techniques to keep radiation doses as low as reasonably achievable (ALARA). Individualized dose reduction techniques using automated exposure control or adjustment of mA and/or kV according to the patient''s size were employed. CLINICAL HISTORY: pain under right breast, soa FINDINGS: There is a carotid artery stent in the right neck. A right subclavian pacemaker is present. There is no evidence of pulmonary embolism. There is no evidence of thoracic aortic aneurysm or dissection. There is no evidence of mediastinal or hilar mass or adenopathy. There are small pleural effusions. Mild bibasilar atelectasis is noted. There is no suspicious pulmonary mass or nodule. The bony thorax has a heterogeneous appearance of uncertain etiology but worrisome for bony metastatic disease. There is a moderate mid thoracic spine compression fracture of uncertain age. IMPRESSION: Heterogeneous appearance of the bony thorax of uncertain etiology but worrisome for neoplastic involvement. Reviewed, Interpreted and Dictated by Francis Sheridan III, MD Transcribed by Chante Cage Authenticated and [facility]
[2021-10-27 12:01] VITALS: BP 111/52; PULSE 62; RESP 18; O2SAT 92
--- NOTE | 2021-10-27 12:03 | PC.NURSE ---
notified rad of CT order
[2021-10-27 13:01] VITALS: BP 119/63; PULSE 70; RESP 12; O2SAT 91
[2021-10-27 13:48] LABS: Microscopic, Urine URINE MICROSCOPIC (MICROSCOPIC)
[2021-10-27 13:51] LABS: Appearance,Urine SL CLOUDY (Clear); Bilirubin,Urine Negative (Negative); Blood, Urine TRACE-I (Negative); Color,Urine YELLOW (Yellow); Glucose,Urine (UA) Negative (Negative); Ketones,Urine Negative (Negative); Leukocyte Esterase,Urine 2+ (Negative); Nitrate,Urine Negative (Negative); PH,Urine 5.5 (5.0-8.5); Protein,Urine Negative (Negative); Urobilinogen,Urine 0.2 EU/dl (0.2)
[2021-10-27 14:09] LABS: Bacteria,Urine 1+ /lpf; RBC,Urine Occasional #/hpf (0-3)
[2021-10-27 14:39] VITALS: BP 119/63; PULSE 62; RESP 17; TEMP 37; O2SAT 94
[2021-10-27 14:50] LABS: Troponin I < 0.01 ng/ml (0.00-0.034)
== END 2021-10-27 14:40 | disposition home or self-care (01) ==
PROVIDERS: Emergency Provider Emergency Medicine; PCP Nurse Practitioner Family
DX: R07.82 Intercostal pain (principal); Z79.82 Long term (current) use of aspirin; Z79.51 Long term (current) use of inhaled steroids; Z79.899 Other long term (current) drug therapy; J44.9 Chronic obstructive pulmonary disease, unspecified; I25.10 Atherosclerotic heart disease of native coronary artery without angina pectoris; E78.5 Hyperlipidemia, unspecified; I10 Essential (primary) hypertension; Z95.0 Presence of cardiac pacemaker; Z85.9 Personal history of malignant neoplasm, unspecified; Z86.73 Personal history of transient ischemic attack (TIA), and cerebral infarction without residual deficits; Z86.79 Personal history of other diseases of the circulatory system
CPT/HCPCS: 36415; 71045; 71275; 80053; 81001; 83690; 83880; 84484; 85025; 85610; 85730; 87086; 93005; 99285; J2405; Q9967

== ENCOUNTER 2021-10-31 23:07 | Emergency (ER) | payer MEDICARE, SELFPAY ==
--- NOTE | 2021-10-31 23:04 | ECG_ITS ---
APPROVED REPORT Exam: Resting ECG HR:69 bpm ECG Measurements Heart Rate 69 AXES SD 234 P 60 QRSd 142 QRS -58 QT 429 T 73 QTc 448 Conclusion SINUS RHYTHM WITH FIRST DEGREE AV BLOCK RIGHT BUNDLE BRANCH BLOCK [120+ ms QRS DURATION, UPRIGHT V1, 40+ ms S IN I/aVL/V4/V5/V6] LEFT ANTERIOR FASCICULAR BLOCK [QRS AXIS <= -45, QR IN I, RS IN II] POSSIBLE LEFT VENTRICULAR HYPERTROPHY [VOLTAGE CRITERIA PLUS LAE OR QRS WIDENING] POSSIBLE ANTERIOR MYOCARDIAL INFARCTION , OF INDETERMINATE AGE [30 ms Q WAVE IN V3/V4, OR R < 0.2 mV IN V4] ABNORMAL ECG UNCONFIRMED REPORT Electronically signed by : Kosta Davis MD 11/01/2021 18:40:51
[2021-10-31 23:07] VITALS: BP 143/83; PULSE 71; RESP 22; TEMP 36.6; O2SAT 93; BMI 29.5
[2021-10-31 23:10] VITALS: BP 147/77; PULSE 67; O2SAT 95
[2021-10-31 23:20] VITALS: BP 128/68; PULSE 65; O2SAT 97
[2021-10-31 23:30] VITALS: BP 131/71; PULSE 65; O2SAT 98
--- NOTE | 2021-10-31 23:33 | HMH.EDGENADL ---
ED Disposition Clinical Impression: Right bundle branch block (RBBB), Chest wall pain Disposition: Home, Self-Care Condition on Discharge: Good Instructions: DI for Acute Pain -- Adult Additional Instructions: keep appt with dr rivera and callpcp for follow up Referrals: Ladonna Burks APRN [Primary Care Provider] - - Critical Care Critical Care Time: No Attestation: On 10/31/21, the high probability of a clinically significant, sudden or life threatening deterioration of the following system(s) required my full and direct attention, intervention and personal management. The time I documented below is in addition to time spent performing reported procedures but includes the following listed in this critical care notation. Medical Decision Making - Medical Records Medical records reviewed: Yes: I reviewed the patient's medical records. - Medardo Inquiry Pt receiving controlled substance: No Vital Signs: 10/31/21 23:07 10/31/21 23:10 10/31/21 23:20 Temperature 97.8 F Temperature Source Oral Pulse Rate 67 65 Pulse Rate [Right] 71 Respiratory Rate 22 Blood Pressure 147/77 H 128/68 Blood Pressure [Right Arm] 143/83 H Blood Pressure Mean Blood Pressure Mean [Right Arm] 103 02 Sat by Pulse Oximetry 93 L 95 97 Oxygen Delivery Method Room Air Nasal Cannula Nasal Cannula Oxygen Flow Rate (LPM) 2 2 10/31/21 23:30 10/31/21 23:40 Temperature Temperature Source Pulse Rate 65 69 Pulse Rate [Right] Respiratory Rate Blood Pressure 131/71 151/98 H Blood Pressure [Right Arm] Blood Pressure Mean 87 Blood Pressure Mean [Right Arm] 02 Sat by Pulse Oximetry 98 97 Oxygen Delivery Method Nasal Cannula Nasal Cannula Oxygen Flow Rate (LPM) 2 2 - Lab Data Lab results reviewed: Yes: I reviewed the patient's lab results. Lab Results 10/31/21 23:15: Sodium 136, Potassium 4.2, Chloride 100, Carbon Dioxide 26, Anion Gap 14.2, BUN 17, Creatinine 0.90, Estimated Creat Clear 65, Estimated GFR 60, Est GFR ( Amer) 73, Glucose 120 H, Calcium 9.6, Total Bilirubin 0.8, AST 35, ALT 23, Alkaline Phosphatase 145 H, Troponin I < 0.01, C-Reactive Protein 3.5, Total Protein 9.3 H, Albumin 4.1, Globulin 5.2 H, Albumin/Globulin Ratio 0.8 L, Amylase 61, Lipase 47, Procalcitonin 0.066 11/01/21 00:04: WBC 6.7, RBC 3.05 L, Hgb 10.8 L, Hct 33.2 L, MCV 108.8 H, MCH 35.4 H, MCHC 32.5, RDW 15.9, Plt Count 214, MPV 9.9, Neut % (Auto) 44.6, Lymph % (Auto) 42.9, [place] % (Auto) 6.2, Eos % (Auto) 5.1, Baso % (Auto) 1.2, Neut # (Auto) 3.0, Lymph # (Auto) 2.9, [place] # (Auto) 0.4, Eos # (Auto) 0.3, Baso # (Auto) 0.1, ESR 13 Result diagrams: 11/01/21 00:04 10/31/21 23:15 Orders (Tests/Meds): ED MEDICATIONS Discontinued Medications Generic Name Dose Route Start Last Admin Trade Name Lorena PRN Reason Stop Dose Admin Hydromorphone HCl 1 mg 11/01/21 00:57 11/01/21 01:11 Hydromorphone 2mg/Ml Syringe IV 11/01/21 00:58 1 mg ONCE ONE Administration Ketorolac Tromethamine 15 mg 11/01/21 00:57 11/01/21 01:10 Ketorolac 30mg/Ml Vial IV 11/01/21 00:58 15 mg ONCE ONE Administration Ondansetron HCl 4 mg 11/01/21 00:57 11/01/21 01:10 Ondansetron 4mg/2ml Vial IV 11/01/21 00:58 4 mg ONCE ONE Administration ORDERS Category Date Time Status Troponin I Q3H Lab 11/01/21 03:00 Ordered Troponin I Q3H Lab 11/01/21 06:00 Ordered Urinalysis and Microscopic Stat Lab 10/31/21 23:46 Ordered - Radiology Data #1 Image(s): Chest Image Reviewed: Yes I have reviewed radiologist's interpretation Preliminary Findings: Normal/NAD - CT Data CT Scan: C-Spine, T-Spine Time Received: 02:[address] Reviewed: Yes: I have viewed the radiologist's interpretation Preliminary Findings: Abnormal, No Fracture Seen (see reports ) - ECG Data Tracing #1 Normal Sinus Rhythm: Yes Ischemic changes: non-specific ST-T wave changes Conduction abnormalities present: RBBB Medical Decision Narrati
[2021-10-31 23:40] VITALS: BP 151/98; PULSE 69; O2SAT 97
--- NOTE | 2021-11-01 | CT_ITS ---
PROCEDURE INFORMATION: Exam: CT Thoracic Spine Without Contrast Exam date and time: 11/01/2021 12:39 AM Age: 81 years old Clinical indication: Pain in thoracic spine; Additional info: Pain, worse when lying flat TECHNIQUE: Imaging protocol: Computed tomography images of the thoracic spine without contrast. Radiation optimization: All CT scans at this facility use at least one of these dose optimization techniques: automated exposure control; mA and/or kV adjustment per patient size (includes targeted exams where dose is matched to clinical indication); or iterative reconstruction. COMPARISON: CT CERVICAL SPINE WO CON 11/01/2021 12:37 AM FINDINGS: Limitations: Patient motion artifact degrades images, limiting sensitivity of exam. Bones/joints: Chronic compression fracture deformities of T6 and T12, unchanged. No acute fracture or malalignment. Discs/Spinal canal/Neural foramina: Multi-level degenerative disc disease, most prominent at T11-T12 where there is severe disc space narrowing, disc vacuum phenomenon, and moderate spinal canal stenosis secondary to disc osteophytes. Multilevel degenerative facet hypertrophy resulting in varying degrees of moderate to severe neuroforaminal narrowing. Soft tissues: Unremarkable. Trachea: Retained secretions vs aspirated material in the lower trachea. 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 IMPRESSION: 1. No acute osseous abnormality in the thoracic spine. 2. Chronic compression fracture deformities of T6 and T12, unchanged. 3. 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 4. Retained secretions vs aspirated material in the lower trachea. 5. Multi-level degenerative changes, as detailed above.
--- NOTE | 2021-11-01 | CT_ITS ---
PROCEDURE INFORMATION: Exam: CT Cervical Spine Without Contrast Exam date and time: 11/01/2021 12:37 AM Age: 81 years old Clinical indication: Neck pain TECHNIQUE: Imaging protocol: Computed tomography images of the cervical spine without contrast. Radiation optimization: All CT scans at this facility use at least one of these dose optimization techniques: automated exposure control; mA and/or kV adjustment per patient size (includes targeted exams where dose is matched to clinical indication); or iterative reconstruction. COMPARISON: CR XR CERVICAL SPINE 5V 08/12/2020 11:08 AM FINDINGS: Bones/joints: No acute fracture or malalignment. Discs/Spinal canal/Neural foramina: Multi-level degenerative disc disease, most prominent from C5-C7. Severe spinal canal stenosis at C3-C4 and C5-C6 secondary to disc herniation and ligamentum flavum thickening, age indeterminate. Multilevel degenerative uncovertebral and facet hypertrophy resulting in severe bilateral neuroforaminal narrowing at C6-C7, as well as varying degrees mild to moderate neuroforaminal narrowing elsewhere. Minimal (1-2 mm) anterolisthesis of C3 on C4 and C7 on T1, likely degenerative. Osteophytosis at the craniocervical junction, compatible with chronic post-traumatic degenerative changes. Trachea: Previously demonstrated communication between the upper esophagus and trachea on concurrent thoracic spine CT is not appreciated on this exam and most likely artifactual. Lungs: No acute abnormality or suspicious mass lesion in the visualized lung apices. Vasculature: Stable appearance of right common carotid artery stent graft. Soft tissues: Unremarkable. IMPRESSION: 1. No acute osseous abnormality in the cervical spine. 2. Severe spinal canal stenosis at C3-C4 and C5-C6 secondary to disc herniation and ligamentum flavum thickening, age indeterminate. 3. Additional multi-level degenerative changes are detailed above. 4. Previously demonstrated communication between the upper esophagus and trachea on concurrent thoracic spine CT is not appreciated on this exam and most likely artifactual.
--- NOTE | 2021-11-01 | XR_ITS ---
PROCEDURE INFORMATION: Exam: XR Chest Exam date and time: 11/01/2021 12:25 AM Age: 81 years old Clinical indication: Chest wall pain and right-sided; Prior surgery; Additional info: Rib pain TECHNIQUE: Imaging protocol: XR of the chest. Views: 2 views. COMPARISON: CR XR CHEST PORTABLE 10/27/2021 10:41 AM FINDINGS: Tubes, catheters and devices: AICD in place with leads in unchanged position. Lungs: No acute airspace consolidation. No appreciable pulmonary edema. Pleural spaces: Trace right pleural effusion. No pneumothorax. Heart/Mediastinum: Cardiomediastinal silhouette is unchanged. Bones/joints: No acute osseous abnormality. Soft tissues: Unremarkable. IMPRESSION: 1. No acute findings. 2. Trace right pleural effusion, not significantly changed from 10/27/2021 exam.
[2021-11-01 00:12] LABS: Alanine Aminotransferase 23 U/L (12-78); Albumin Level 4.1 g/dl (3.5-5.0); Albumin/Globulin Ratio 0.8 (1.1-1.8); Alkaline Phosphatase 145 U/L (38-126); Amylase 61 U/L (30-110); Anion Gap 14.2 mEq/L (5-15); Aspartate Amino Transferase 35 U/L (14-36); Bilirubin,Total 0.8 mg/dl (0.2-1.3); Blood Urea Nitrogen 17 mg/dl (7-17); Calcium 9.6 mg/dl (8.4-10.2); Carbon Dioxide 26 mmol/L (22.0-30.0); Chloride 100 mmol/L (98-107); Creatinine Clearance Estimated 65 mL/min (50-200); Estimated Glomerular Filt Rate 60 ml/min (>60); GFR (African American) 73 ML/MIN (>60); Globulin 5.2 g/dL (1.3-3.2); Glucose 120 mg/dl (74-100); Lipase 47 U/L (23-300); Potassium 4.2 mmoL/L (3.5-5.1); Sodium 136 mmol/L (136-145); Total Protein,Serum 9.3 g/dl (6.3-8.2)
[2021-11-01 00:18] LABS: C-Reactive Protein 3.5 mg/L (0-4)
[2021-11-01 00:30] LABS: Troponin I < 0.01 ng/ml (0.00-0.034)
[2021-11-01 00:31] LABS: Procalcitonin 0.066 ng/mL (0.0-2.0)
[2021-11-01 00:39] LABS: Basophils # 0.1 K/mm3 (0-0.2); Basophils % 1.2 % (0.1-2.0); Eosinophils # 0.3 K/mm3 (0.0-0.4); Eosinophils % 5.1 % (0.1-12.0); Hematocrit 33.2 % (37.0-47.0); Hemoglobin 10.8 g/dL (12.2-16.2); Lymphocytes # 2.9 K/mm3 (0.7-4.5); Lymphocytes % 42.9 % (10-50); Mean Corpuscular HGB Conc 32.5 g/dL (31.8-35.4); Mean Corpuscular Hemoglobin 35.4 pg (27.0-31.2); Mean Corpuscular Volume 108.8 fl (81-99); Mean Platelet Volume 9.9 fl (7.4-10.4); Monocytes # 0.4 K/mm3 (0.1-1.0); Monocytes % 6.2 % (1.7-9.3); Neutrophils % 44.6 % (37.0-80.0); Platelet Count 214 K/mm3 (142-424); Red Blood Count 3.05 M/mm3 (4.20-5.40); Red Cell Distribution Width 15.9 % (11.5-17.5); White Blood Count 6.7 K/mm3 (4.8-10.8)
[2021-11-01 01:42] LABS: Erythrocyte Sedimentation Rate 13 mm/hr (0-30)
[2021-11-01 02:42] VITALS: BP 128/68; PULSE 65; RESP 18; TEMP 36.5; O2SAT 97
== END 2021-11-01 02:44 | disposition home or self-care (01) ==
PROVIDERS: Emergency Provider Emergency Medicine; PCP Nurse Practitioner Family
DX: I45.10 Unspecified right bundle-branch block (principal); J44.9 Chronic obstructive pulmonary disease, unspecified; I25.10 Atherosclerotic heart disease of native coronary artery without angina pectoris; I11.0 Hypertensive heart disease with heart failure; I50.9 Heart failure, unspecified; Z95.0 Presence of cardiac pacemaker; Z86.73 Personal history of transient ischemic attack (TIA), and cerebral infarction without residual deficits; E07.9 Disorder of thyroid, unspecified; Z79.899 Other long term (current) drug therapy; Z79.82 Long term (current) use of aspirin
CPT/HCPCS: 71046; 72125; 72128; 80053; 82150; 83690; 84145; 84484; 85025; 85651; 86140; 93005; 96374; 96375; 96376; 99285; J2405

== ENCOUNTER → 2021-11-03 14:06 | Outpatient (CLI) | payer MEDICARE, SELFPAY ==
[2021-11-03 16:25] LABS: Basophils % 0.7 % (0.1-2.0); Eosinophils # 0.3 K/mm3 (0.0-0.4); Eosinophils % 4.5 % (0.1-12.0); Hematocrit 36.4 % (37.0-47.0); Hemoglobin 11.9 g/dL (12.2-16.2); Lymphocytes # 2.8 K/mm3 (0.7-4.5); Mean Corpuscular HGB Conc 32.8 g/dL (31.8-35.4); Mean Corpuscular Hemoglobin 35.7 pg (27.0-31.2); Mean Corpuscular Volume 108.8 fl (81-99); Mean Platelet Volume 9.5 fl (7.4-10.4); Monocytes # 0.4 K/mm3 (0.1-1.0); Monocytes % 6.6 % (1.7-9.3); Neutrophils # 2.9 K/mm3 (1.8-7.8); Neutrophils % 45.2 % (37.0-80.0); Platelet Count 244 K/mm3 (142-424); Red Blood Count 3.34 M/mm3 (4.20-5.40); Red Cell Distribution Width 16.1 % (11.5-17.5); White Blood Count 6.5 K/mm3 (4.8-10.8)
[2021-11-03 17:11] LABS: Alanine Aminotransferase 23 U/L (12-78); Albumin Level 4.2 g/dl (3.5-5.0); Albumin/Globulin Ratio 0.8 (1.1-1.8); Alkaline Phosphatase 150 U/L (38-126); Amylase 53 U/L (30-110); Anion Gap 15.5 mEq/L (5-15); Aspartate Amino Transferase 44 U/L (14-36); Bilirubin,Total 1.2 mg/dl (0.2-1.3); Blood Urea Nitrogen 17 mg/dl (7-17); Calcium 9.6 mg/dl (8.4-10.2); Carbon Dioxide 27 mmol/L (22.0-30.0); Chloride 100 mmol/L (98-107); Estimated Glomerular Filt Rate 60 ml/min (>60); GFR (African American) 73 ML/MIN (>60); Globulin 5.3 g/dL (1.3-3.2); Glucose 102 mg/dl (74-100); Lactate Dehydrogenase 478 U/L (313-618); Lipase 77 U/L (23-300); Potassium 5.5 mmoL/L (3.5-5.1); Sodium 137 mmol/L (136-145); Total Protein,Serum 9.5 g/dl (6.3-8.2); Uric Acid 5.5 mg/dl (2.5-6.2)
[2021-11-07 14:36] LABS: Immunoglobulin A, Qn 2253 mg/dL (64-422); Immunoglobulin G, Qn 459 mg/dL (586-1602); Immunoglobulin M, Qn 16 mg/dL (26-217)
[2021-11-07 15:58] LABS: Albumin 3.5 g/dL (2.9-4.4); Alpha-1-Globulin 0.2 g/dL (0.0-0.4); Alpha-2-Globulin 1.3 g/dL (0.4-1.0); Gamma Globulin 2.7 g/dL (0.4-1.8); Protein, Total 8.6 g/dL (6.0-8.5)
[2021-11-13 21:01] LABS: Free Kappa Lt Chains 85.7; Free Lambda Lt Chains 4.1
== END ==
PROVIDERS: PCP Nurse Practitioner Family; Visit Provider Internal Medicine Medical Oncology
DX: R10.30 Lower abdominal pain, unspecified (principal)
CPT/HCPCS: 36415; 80053; 82150; 82784; 83615; 83690; 83883; 84155; 84165; 84550; 85025; 86334